=== PATIENT | male | born 1940 | race Two or more races ===

== ENCOUNTER 2024-09-19 21:05 | Inpatient (IN) | payer MEDICARE, MEDICAID, SELFPAY ==
[2024-09-19 21:09] VITALS: BMI 22.8
[2024-09-19 21:10] VITALS: BP 174/74; PULSE 81; RESP 22; TEMP 36.8; O2SAT 92
[2024-09-19 22:13] VITALS: BP 154/80; PULSE 87; RESP 32; TEMP 37.7; O2SAT 93
--- NOTE | 2024-09-19 22:43 | XR_ITS ---
Examination: AP chest single view Technique one AP portable upright chest single view Standing time: September 19, 2024 1053 hours INDICATIONS: Coughing beginning 3 days ago FINDINGS: Normal heart size Extensive bilateral pneumonia Prominent osteopenia IMPRESSION: Extensive bilateral pneumonia
[2024-09-19 23:00] VITALS: BP 116/63; O2SAT 91
--- NOTE | 2024-09-19 23:00 | EDNOTE_ITS ---
ED SOB =RME/HPI General Chief Complaint: Shortness of Breath/Dyspnea Stated Complaint: COUGH Time Seen by Provider: 09/19/24 22:50 Arrival date/time: 09/19/24 21:05 RME / HPI RME / HPI Narrative: Dr. Sullivan?s Main ED Evaluation: 84yo male with a history of DM, HTN, BPH BIBA from [facility] presents to the ED for a chief complaint of hypoxia. Per EMS, patient was sent over due to the patient being hypoxic at 75% on 4L. Patient denies any chest pain, shortness of breath or nausea, but endorses having LUQ pain. He denies any other associated symptoms. No known allergies. Related Data Allergies Allergy/AdvReac Type Severity Reaction Status Date / Time No Known Allergies Allergy Verified 09/19/24 22:43 Review of Systems Review of Systems Systems Reviewed: All systems reviewed, normal except as documented Narrative Review of Systems: Gen: No fever, no chills, no weight loss EYES: No discharge, no visual changes, no pain HEENT: No ear pain, no congestion, no sore throat PULM: No shortness of breath, no cough, no congestion CV: No chest pain, no dyspnea on exertion, no palpitations GI: No nausea, no vomiting, no diarrhea, + pain, no constipation : No frequency, no urgency, no dysuria Musc/skel: No joint pain, no back pain Skin: No rash. Warm and dry. Psyc: No hallucinations, no depression Heme/Lymph: No easy bleeding or bruising tendencies Neuro: No weakness, no headache Past Medical History Past Medical History CARDIAC: Negative Cardiac Disorders or Congestive Heart Failure RESPIRATORY: Negative Respiratory Disorders or Chronic Obstructive Pulmonary Disease (COPD) GASTROINTESTINAL: Negative Gastrointestinal Disorders GENITOURINARY: Negative Renal Disease ENT: Negative History of ENT Problems ENDOCRINE: Positive Diabetes Mellitus Type 2; Negative Endocrine Disorders or Diabetes Mellitus Type 1 HEMATOLOGIC: Negative Blood Disorders ED Exam Narrative Physical exam: GENERAL APPEARANCE: alert and oriented x 4, well-developed, well-nourished, no acute distress VITALS: All vitals were reviewed and the pulse ox is 88% on 4L, which is hypoxic according to my interpretation. HEENT: Normocephalic, atraumatic; pupils equal, round, reactive to light; EOMI; mucous membranes pink, moist; oropharynx clear NECK: Supple LUNGS: no wheezes, rales and rhonchi to bilateral bases HEART: Regular rate, regular rhythm; normal S1, S2; no murmurs ABDOMEN: non distended; normal BS; soft, no tenderness, no guarding, no rebound; no masses, no organomegaly, no hernia BACK: no CVA tenderness EXTREMITIES: atraumatic; no edema NEUROLOGIC: awake; alert and oriented x4; cranial nerves II-XII grossly intact; no focal sensory or motor deficits PSYCHIATRIC: appropriate mood and affect SKIN: warm, dry, normal color; no rashes Course Course Course Narrative: IVF held off due to the patient having pulmonary vascular congestion. 2308: Sepsis alert initiated. Orders made at this time are congruent with ED Adult Sepsis Order List. Re-evaluation is to be completed. Quality Measures Possible source: pulmonary Blood cultures ordered: yes Antibiotic ordered: Yes Pertinent labs: 09/19/24 09/19/24 22:45 22:50 Lactic Acid 1.1 mMol/L (0.4-2.0) Procalcitonin 0.98 H ng/ml (0.0-0.49) sepsis Orders Category Date Time Status Lead Javascript Developer STAT Care 09/19/24 23:01 Active Continuous Pulse Oximetry STAT Care 09/19/24 23:01 Active EKG (ED ONLY) *Do not use* NOW Care 09/19/24 23:01 Completed In and Out Catheter X1PRN Care 09/19/24 23:01 Active Insert IV NOW Care 09/19/24 23:01 Active NPO STAT Care 09/19/24 23:01 Active Strict Intake and Output Routine Care 09/19/24 23:01 Ordered EKG (ED Only) Stat Exams 09/19/24 23:01 Draft XR chest 1V portable Stat Exams 09/19/24 22:43 Completed Arterial Blood Gas Stat Lab 09/19/24 23:23 Completed B-Type Natriuretic Peptide Stat Lab 09/19/24 23:03 Completed Blood Culture (Lab) Stat Lab 09/19/24 23:03 Received CBC Stat Lab 09/19/24 22:50 Completed CMP [Comprehensive Metabolic Panel] Stat Lab 09/19/24 22:50 Completed LDH (Lactate Dehydrogenase) Stat Lab 09/19/24 22:50 Completed Lactate (Lactic Acid) Stat Lab 09/19/24 22:45 Completed Lipase Stat Lab 09/19/24 22:50 Completed Magnesium Stat Lab 09/19/24 22:50 Completed Partial Thromboplastin Time Stat Lab 09/19/24 23:03 Completed Phosphorous Stat Lab 09/19/24 22:50 Completed Procalcitonin Stat Lab 09/19/24 22:50 Completed Prothrombin Time with INR Stat Lab 09/19/24 23:03 Completed Troponin I Stat Lab 09/19/24 22:50 Completed Urinalysis Stat Lab 09/19/24 23:01 Ordered Urine Culture Stat Lab 09/19/24 23:01 Ordered DiphenhydrAMINE INJ [Benadryl Inj] Med 09/20/24 00:09 Discontinued 25 mg IVP X1 ONE Famotidine Inj [Pepcid Inj] Med 09/20/24 00:09 Discontinued 20 mg IVP X1 ONE MethylPREDNISolone.* [SoluMEDROL Inj] Med 09/20/24 00:36 Discontinued 125 mg IVP X1 ONE Piper/Tazo 3.375 gm [Zosyn] Med 09/19/24 23:01 Discontinued 3.375 gm in 50 ml IV X1 Oxygen Delivery NOW RT 09/19/24 23:01 Active Vital Signs Vital signs: Vital Signs Temperature 98.3 F 09/19/24 21:10 Pulse Rate 81 09/19/24 21:10 Respiratory Rate 22 H 09/19/24 21:10 Blood Pressure 174/74 H 09/19/24 21:10 Pulse Oximetry (%) 92 L 09/19/24 21:10 Oxygen Delivery Method Room Air 09/19/24 21:10 Shortness of Breath / Dyspnea MDM Narrative [facility] Narrative:: 0030: Informed by the nurse that the patient had an allergic reaction to Zosyn (had a rash, became short of breath, and was hypoxic). Patient was given Benadryl and Pepcid. Patient data External records reviewed:: [facility] previous records (Per chart review, patient has no previous ED visits or admissions to this facility.) Clinical information provided by:: patient Social determinants that could affect healthcare access:: housing (Pt resides in a SNF.) Patient has the following chronic illnesses:: DM, HTN, BPH How is presenting disease/condition affected by chronic disease/condition?: uneffected by Evaluation data The following diagnostics were reviewed and interpreted by me:: lab results, radiology exam(s) and EKG tracing(s) Lab and/or radiology exams considered but not ordered:: none Interpretation Summary: CBC is normal, PTT is normal, PT and INR are normal, Lactic Acid is normal, troponin is slightly elevated at 0.054, BNP is normal, Procalcitonin is slightly elevated at 0.98, according to my interpretation. CXR shows vascular congestion, [id number] pulmonary edema, and bilateral infiltrates. EKG done at 2329, NSR, rate of 76, left axis deviation, LBBB, no ectopy, no acute ischemia, according to my interpretation. Medications / Prescriptions Medications or Prescriptions considered but not ordered:: none Medication administrations:: Medication Administration History Discontinued Medications Diphenhydramine HCl (Diphenhydramine Inj 50 Mg/Ml Vial) 25 mg IVP X1 ONE Stop: 09/20/24 00:10 Last Admin: 09/20/24 00:25 Dose: 25 mg Documented By: ANSELMO Famotidine (Famotidine Inj 10 Mg/Ml Vial 2 Ml) 20 mg IVP X1 ONE Stop: 09/20/24 00:10 Last Admin: 09/20/24 00:24 Dose: 20 mg Documented By: ANSELMO Piperacillin/Tazobactam/Dextrose (Zosyn) 3.375 gm in 50 mls @ 100 mls/hr IV X1 ONE Stop: 09/19/24 23:30 Last Infusion: 09/20/24 00:23 Dose: Infused Documented By: Admin: 09/19/24 23:35 Dose: 100 mls/hr Documented By: KG Methylprednisolone Sodium Succinate (Methylprednisolone Sod Succ 62.5 Mg/Ml 2ml Vial) 125 mg IVP X1 ONE Stop: 09/20/24 00:37 see above Consultations Consultation(s) initiated? (list below): Yes Consultation #1 (Physician, Specialty, Details): Discussed case with [Dr. Catalan, attending Dr. Higgins] from Hospitalist service regarding admission. Discussed patients ED course, exam findings, labs, and radiology results. The Hospitalist [agrees] to accept the patient for admission. Time: 00:46 Diagnosis Shortness of Breath Differential Diagnosis: other (aspiration pnuemonia, hospital acquired pneumonia, COPD exacerbation, pulmonary edema, empyema) Most likely diagnosis given after review of the tests above:: see below Admission Indicated Admission indicated?: indicated Admission Request Was there a request for admission?: Yes Admission Attestation Admission request attestation: Discussed case with [] from Hospitalist service regarding admission. Discussed patients ED course, exam findings, labs, and radiology results. The Hospitalist [agrees,declines] to accept the patient for admission. Disposition Plan Disposition Plan: Admit Critical Care Time Critical Care Time Critical Care Time: Yes Total Critical Care Time (min.): 40 Attestation: The high probability of sudden, clinically significant deterioration in the patient?s condition required the highest level of my preparedness to intervene urgently. The services I provided to this patient were to treat and/or prevent clinically significant deterioration. Services included the following: chart data review, reviewing nursing notes and/or old charts, documentation time, infrastructure consultant collaboration regarding findings and treatment options, medication orders and management, direct patient care, vital sign assessments and ordering, interpreting and reviewing diagnostic studies and lab tests. Aggregate critical care time includes only time during which I was engaged in work directly related to the patient?s care, as described above, whether at bedside or elsewhere in the Emergency Department. It did not include time spent performing other reported procedures or the services of residents, students, nurses or physician assistants. Discharge Plan Plan Patient Disposition: Admit Acute Care w/in Hospital Problem List Clinical Impression: Multifocal pneumonia, Allergic reaction, Hypoxia, Sepsis, Dehydration, Respiratory failure Patient/Caregiver Discharge Instructions Print Language: Citizen Of [place] Stand Alone Forms: Carin Award Info., Patient Portal Info Letter
--- NOTE | 2024-09-19 23:01 | EKG_ITS ---
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
[2024-09-19 23:09] LABS: Lactate (Lactic Acid) 1.1 mMol/L (0.4-2.0)
[2024-09-19 23:14] LABS: Basophils % (Auto) 0 % (0-2.5); Eosinophils % (Auto) 0 % (0-10); Hematocrit 35.5 % (41.0-53.0); Hemoglobin 11.6 g/dL (13.5-16.0); Immature Granulocytes % (Auto) 2 % (0-0); Immature Granulocytes Auto 0.22 Thou/mm3 (0.00-0.00); Lymphocytes # (Auto) 1.3 Thou/mm3 (1.0-4.8); Lymphocytes % (Auto) 12 % (10-50); Mean Corpuscular HGB Conc 32.7 g/dl (31.0-37.0); Mean Corpuscular Hemoglobin 26.4 pg (25.0-35.0); Mean Corpuscular Volume 81 fL (80-100); Monocytes # (Auto) 0.6 Thou/mm3 (0.0-0.8); Monocytes % (Auto) 6 % (0-12); Neutrophils # (Auto) 8.3 Thou/mm3 (1.8-7.7); Neutrophils % (Auto) 80 % (37-80); Nucleated Red Blood Cell % 0 /100 WBC (0); Platelet Count 317 Thou/mm3 (140-440); RDW Standard Deviation 42.5 fL (35.1-43.9); White Blood Count 10.4 Thou/mm3 (3.8-10.6)
[2024-09-19 23:26] LABS: Base Excess 4 (-3-3); HCO3 27 mEq/L (20-26); Inspired Oxygen, FIO2 21 %; O2 Saturation 91 % (91-98); PCO2 37 mmHg (32.0-48.0); pH, Arterial 7.48 (7.35-7.45)
[2024-09-19 23:28] LABS: Allen Test Performed/OK; Inspired O2, VO2 Liters 6 L/min; Puncture Site Right Radial
[2024-09-19 23:30] LABS: PO2 58 mmHg (83-108)
[2024-09-19 23:32] VITALS: PULSE 96; RESP 20; O2SAT 93
[2024-09-19 23:35] LABS: B-Type Natriuretic Peptide 94 pg/mL (0-100)
[2024-09-19] MEDS: PIPER/TAZO 3.375 GM 3.375 GM/50 ML BAG IV (23:35)
[2024-09-19 23:36] LABS: INR 1.1 (0.9-1.3); Partial Thromboplastin Time 28.2 Seconds (22.0-36.0); Prothrombin Time 11.9 Seconds (9.0-12.2)
[2024-09-19 23:49] LABS: Alanine Aminotransferase 52 U/L (10-49); Albumin, Serum 3.3 gm/dL (3.4-4.8); Alkaline Phosphatase 336 U/L (46-116); Anion Gap 10 (7-16); Aspartate Amino Transferase 57 U/L (0-34); BUN/Creatinine Ratio 27 Ratio (12-20); Bilirubin,Total 0.7 mg/dL (0.3-1.2); Blood Urea Nitrogen 16 mg/dL (9-23); Calcium 8.7 mg/dL (8.3-10.6); Calcium (Corrected) 9.3 mg/dL (8.5-10.1); Carbon Dioxide 28.4 mMol/L (20.0-31.0); Chloride 96 mMol/L (98-107); Creatinine (Component) 0.6 mg/dL (0.6-1.3); Estimated Creatinine Clearance 88.2 mL/min (>60); Globulin 3.2 gm/dL (2.3-3.5); Glucose 111 mg/dL (74-106); LDH (Lactate Dehydrogenase) 420 U/L (120-246); Lipase 42 U/L (12-53); Magnesium 1.8 mg/dL (1.6-2.6); Osmolality,Calculated 270 (275-295); Phosphorous 3.3 mg/dL (2.4-5.1); Potassium 3.5 mMol/L (3.4-5.1); Procalcitonin 0.98 ng/ml (0.0-0.49); Sodium 134 mMol/L (136-145); Total Protein 6.5 gm/dL (5.7-8.2); eGFR > 60 See Note
[2024-09-19 23:51] LABS: Troponin I 0.054 ng/mL (0.0-0.045)
[2024-09-20] VITALS (21 sets, daily range): BP systolic 107–149; BP diastolic 60–99; PULSE 64–99; RESP 17–30; TEMP 36.1–37.7; O2SAT 88–98; BMI 25.8
--- NOTE | 2024-09-20 00:20 | PC.NURSE ---
While receiving Zosyn IV, pt began to o itching . pt had red blotching on much of his body. Med stoped. MD notified and meds ordered and given.
[2024-09-20] MEDS: FAMOTIDINE INJ 10 MG/ML VIAL 2 ML 20 MG IVP (00:24)
[2024-09-20] MEDS: DiphenhydrAMINE INJ 50 MG/ML VIAL 25 MG IVP (00:25)
[2024-09-20] MEDS: MethylPREDNISolone SOD SUCC 62.5 MG/ML 2ML VIAL 125 MG IVP (01:00)
[2024-09-20 01:12] LABS: Collection Type, Urine Clean Catch
[2024-09-20 01:31] LABS: Bacteria,Urine 4+; Bilirubin,Urine Negative (Negative); Blood,Urine Trace (Negative); Clarity,Urine Turbid (Clear/Hazy); Color,Urine Yellow (Lt Yel-Yel); Glucose, Urine Negative (Negative); Hyaline Casts,Urine 1 /hpf (0-1); Ketones,Urine Negative (Negative); Leukocyte Esterase,Urine Positive (Negative); Nitrite,Urine Negative (Negative); Protein,Urine 2+ (Neg - Trace); RBC,Urine 3 /hpf (0-3); Specific Gravity,Urine 1.021 (1.001-1.035); Squamous Epithelial Cell,Urine 3 /hpf (0-5); Urobilinogen,Urine 12 mg/dL (0.0-1.0); WBC,Urine 95 /hpf (0-5)
--- NOTE | 2024-09-20 02:10 | PC.NURSE ---
since meds given for appearant reaction to zosyn, pt no longer itching, no rash and 02 is 93 on 6 L oxy mask. pt also up to BS camode and had medium formed brown BM. pt is resting comfortably now
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
[2024-09-20] MEDS: DOXYCYCLINE INJ 100 MG in SODIUM CHLORIDE 0.9% (P) 100 ML IV ×3 (03:56→20:43)
[2024-09-20] MEDS: SODIUM CHLORIDE RT 10% 15 ML NEBU 5 ML INH (04:07)
[2024-09-20 05:03] LABS: Basophils % (Auto) 0 % (0-2.5); Eosinophils % (Auto) 0 % (0-10); Hematocrit 36.5 % (41.0-53.0); Hemoglobin 11.8 g/dL (13.5-16.0); Immature Granulocytes % (Auto) 2 % (0-0); Immature Granulocytes Auto 0.21 Thou/mm3 (0.00-0.00); Lymphocytes # (Auto) 0.8 Thou/mm3 (1.0-4.8); Lymphocytes % (Auto) 6 % (10-50); Mean Corpuscular HGB Conc 32.3 g/dl (31.0-37.0); Mean Corpuscular Hemoglobin 26.5 pg (25.0-35.0); Mean Corpuscular Volume 82 fL (80-100); Monocytes # (Auto) 0.2 Thou/mm3 (0.0-0.8); Monocytes % (Auto) 2 % (0-12); Neutrophils # (Auto) 12.2 Thou/mm3 (1.8-7.7); Neutrophils % (Auto) 91 % (37-80); Nucleated Red Blood Cell % 0 /100 WBC (0); Platelet Count 281 Thou/mm3 (140-440); RDW Standard Deviation 43.3 fL (35.1-43.9); Red Blood Count 4.45 Miln/mm3 (4.50-5.90); White Blood Count 13.4 Thou/mm3 (3.8-10.6)
[2024-09-20] MEDS: CEFEPIME INJ 2 GM in SODIUM CHLORIDE 0.9% 50 ML IV ×3 (05:12→21:26)
[2024-09-20 05:31] LABS: Alanine Aminotransferase 45 U/L (10-49); Albumin, Serum 3.1 gm/dL (3.4-4.8); Albumin/Globulin Ratio 1.1 (1.2-2.2); Alkaline Phosphatase 302 U/L (46-116); Anion Gap 8 (7-16); Aspartate Amino Transferase 51 U/L (0-34); BUN/Creatinine Ratio 30 Ratio (12-20); Bilirubin,Total 0.7 mg/dL (0.3-1.2); Blood Urea Nitrogen 15 mg/dL (9-23); Calcium 8.4 mg/dL (8.3-10.6); Calcium (Corrected) 9.1 mg/dL (8.5-10.1); Carbon Dioxide 24.7 mMol/L (20.0-31.0); Cardiac Risk Estimate 5.3 RATIO (4.0-6.7); Chloride 100 mMol/L (98-107); Cholesterol 127 mg/dL (132-200); Creatinine (Component) 0.5 mg/dL (0.6-1.3); Estimated Creatinine Clearance 105.8 mL/min (>60); Globulin 2.9 gm/dL (2.3-3.5); Glucose 148 mg/dL (74-106); HDL Cholesterol 24 mg/dL (40-60); LDL Cholesterol,Calculated 73 mg/dL (0-130); Magnesium 1.8 mg/dL (1.6-2.6); Osmolality,Calculated 270 (275-295); Potassium 3.6 mMol/L (3.4-5.1); Sodium 133 mMol/L (136-145); Thyroid Stimulating Hormone 1.29 uIU/mL (0.55-4.78); Triglycerides 149 mg/dL (30-150); Troponin I 0.045 ng/mL (0.0-0.045); eGFR > 60 See Note
[2024-09-20 06:09] LABS: Glucose Estimated Average 140 mg/dL (80-131); Hemoglobin A1C 6.5 % Hgb (4.8-6.0)
[2024-09-20] MEDS: ALBUTEROL/IPRATROPIUM (Duoneb) RT SOL 3 ML NEBU INH ×4 (06:17→22:48)
--- NOTE | 2024-09-20 07:04 | PC.NURSE ---
Report was called to RN and pt was taken to rm [id number] on monitor by me.
[2024-09-20 07:15] LABS: Respiratory Syncytial Virus Ag Negative (Negative)
[2024-09-20] MEDS: Furosemide 20 MG TABLET PO (08:35)
[2024-09-20] MEDS: HEPARIN SOD INJ 5000 UNIT/ML VIAL SC ×2 (08:36→20:49)
[2024-09-20] MEDS: guaiFENesin SYRUP 200 MG/10 ML UDC PO (08:36)
[2024-09-20] MEDS: SENNA TABLET 1 TAB PO (08:36)
[2024-09-20] MEDS: PANTOPRAZOLE INJ 40 MG VIAL IVP (08:37)
--- NOTE | 2024-09-20 09:06 | PC.SS ---
Update: Cultures are pending. Patient receiving IV antibiotics to address UTI.
--- NOTE | 2024-09-20 10:03 | PC.SS ---
MEDICAL TECHNOLOGIST CLINICAL attempted phone call with patient's brother, Drew Schofield; to conduct initial assessment, no response. MEDICAL TECHNOLOGIST CLINICAL left message requesting return call.
[2024-09-20] MEDS: NICOTINE PATCH 7 MG/24 HR PATCH.TD24 TOP (10:46)
[2024-09-20] MEDS: POTASSIUM CHLORIDE 20 mEq TABCR PO (11:55)
[2024-09-20] MEDS: Magnesium Sulfate 2 GM Ivpb 2 GM/50 ML BAG IV (11:59)
[2024-09-20] MEDS: INSULIN LISPRO (AdmeLOG) 1 UNIT/0.01 ML UNIT SC ×3 (12:00→20:49)
[2024-09-20 12:05] LABS: Base Excess, Venous 1 (-3-3); O2 Saturation, Venous 75 % (96-97); PCO2, Venous 47 mmHg (36-56); PO2, Venous 44 mmHg (15-58); pH, Venous 7.36 (7.33-7.66)
[2024-09-20 14:26] LABS: Cocci Serology, IgM Negative (Negative)
--- NOTE | 2024-09-20 17:30 | ESPR_ITS ---
<Statement entered by Britton Cain MD - 09/20/24 18:55> Patient was seen and examined at the bedside. Patient is admitted for acute hypoxic respiratory failure due to healthcare acquired pneumonia. Cxr showed worsening B/L PNA. Patient continued to remain short of breath at rest. Patient was short of breath and desatted to the low 70s. He was placed on nonrebreather mask.We placed order for high flow oxygen as needed.Continuw Cefepime/doxy and BT. A1c was 6.5.Cocci IgM came negative.Patient will be continued on lasix home med for diuresis he was net positive 250 cc. All labs and ordered reviewed. I saw and examined the patient, and I agree with current management stated by Dr Bernardino MD,PGY1. Plan of care was discussed with the attending physician and resident physician. Disclaimer: Despite multiple revisions, due to the dictation software being used, the document bellow may not be free of grammatical errors including phonetic/typographic errors. However, this does not deter from our commitment to providing health care in the patient's best interest in mind. Dr. Payton MD, PGY 2 Documentation for date of: 09/20/24 Subjective Subjective Interval history: Admitted overnight for acute hypoxic respiratory failure secondary to hospital- acquired pneumonia. Continues to be short of breath at rest. Informal rapid called earlier this afternoon as patient desatted to the low 70s. Per RN patient took off his nonrebreather mask. Problem was immediately resolved when the mask was reapplied. Patient was then ordered high flow oxygen for comfort, and so that he could eat. Exam Vital Signs Temp Pulse Resp BP Pulse Ox O2 Del Method O2 Flow Rate 97 F 72 17 149/74 H 92 L High Flow Nasal Cannula 09/20/24 16:09/20/24 16:00 09/20/24 16:00 09/20/24 16:00 09/20/24 16:00 09/20/24 16:09/20/24 16:00 FiO2 60 09/20/24 14:38 Narrative Exam Constitutional: No acute distress Head: Normocephalic/Atraumatic Eyes: no conjunctival injection , symmetrical lids. ENMT: Moist Mucous Membranes CVS: RRR, S1 and S2 present, no murmurs, rubs or gallops . RESP: Rhonchi throughout, mildly tachypneic, patient on 13 L O2 via nonrebreather MSK: No lower extremity edema Skin: Warm to touch, Dry. Neuro: GCS 15, moves all limbs spontaneously Psych: (AAO) x3 . Appropriate mood and affect. Objective Labs 09/21/24 05:03 09/21/24 05:03 Labs: Laboratory Results - last 24 hr 09/19/24 09/19/24 09/19/24 22:45 22:50 23:03 WBC 10.4 RBC 4.40 L Hgb 11.6 L Hct 35.5 L MCV 81 MCH 26.4 MCHC 32.7 RDW Std Deviation 42.5 Plt Count 317 Neut % (Auto) 80 Lymph % (Auto) 12 [place] % (Auto) 6 Eos % (Auto) 0 Baso % (Auto) 0 Neut # (Auto) 8.3 H Lymph # (Auto) 1.3 [place] # (Auto) 0.6 Eos # (Auto) 0.0 Baso # (Auto) 0.0 Immature Gran # (Auto) 0.22 H Absolute Nucleated RBC 0.00 Immature Gran % 2 H Nucleated RBC % 0 PT 11.9 INR 1.1 APTT 28.2 Puncture Site ABG pH ABG pCO2 ABG pO2 ABG HCO3 ABG O2 Saturation ABG Base Excess VBG pH VBG pCO2 VBG pO2 VBG O2 Sat (Saray) VBG Base Excess Oxygen Liter Flow FiO2 Sodium 134 L Potassium 3.5 Chloride 96 L Carbon Dioxide 28.4 Anion Gap 10 BUN 16 Creatinine 0.6 Estim Creat Clear Calc 88.2 eGFR > 60 BUN/Creatinine Ratio 27 H Glucose [address] Glu mg/dL Hemoglobin A1c Calculated Osmolality 270 L Lactic Acid 1.1 Calcium 8.7 Corrected Calcium 9.3 Phosphorus 3.3 Magnesium 1.8 Total Bilirubin 0.7 AST 57 H ALT 52 H Alkaline Phosphatase 336 H Lactate Dehydrogenase 420 H Troponin I 0.054 H* B-Natriuretic Peptide 94 Total Protein 6.5 Albumin 3.3 L Globulin 3.2 Albumin/Globulin Ratio 1.0 L Triglycerides Cholesterol LDL Cholesterol, Calc HDL Cholesterol Cholesterol/HDL Ratio Lipase 42 Procalcitonin 0.98 H TSH Ur Collection Type Urine Color Urine Clarity Urine pH Ur Specific [place] Urine Protein Urine Glucose (UA) Urine Ketones Urine Blood Urine Nitrite Urine Bilirubin Urine Urobilinogen (Auto) Ur Leukocyte Esterase Urine RBC Urine WBC Ur Squamous Epith Cells Urine Bacteria Hyaline Casts Coccidioides IgM Ab RSV Rapid 09/19/24 09/20/24 09/20/24 23:23 01:00 04:39 WBC 13.4 H RBC 4.45 L Hgb 11.8 L Hct 36.5 L MCV 82 MCH 26.5 MCHC 32.3 RDW Std Deviation 43.3 Plt Count 281 D Neut % (Auto) 91 H Lymph % (Auto) 6 L [place] % (Auto) 2 Eos % (Auto) 0 Baso % (Auto) 0 Neut # (Auto) 12.2 H Lymph # (Auto) 0.8 L [place] # (Auto) 0.2 Eos # (Auto) 0.0 Baso # (Auto) 0.0 Immature Gran # (Auto) 0.21 H Absolute Nucleated RBC 0.00 Immature Gran % 2 H Nucleated RBC % 0 PT INR APTT Puncture Site Right Radial ABG pH 7.48 H ABG pCO2 37 ABG pO2 58 L* ABG HCO3 27 H ABG O2 Saturation 91 ABG Base Excess 4 H VBG pH VBG pCO2 VBG pO2 VBG O2 Sat (Saray) VBG Base Excess Oxygen Liter Flow 6 FiO2 21 Sodium 133 L Potassium 3.6 Chloride 100 Carbon Dioxide 24.7 Anion Gap 8 BUN 15 Creatinine 0.5 L Estim Creat Clear Calc 105.8 eGFR > 60 BUN/Creatinine Ratio 30 H Glucose [address] Glu mg/dL 140 H Hemoglobin A1c 6.5 H Calculated Osmolality 270 L Lactic Acid Calcium 8.4 Corrected Calcium 9.1 Phosphorus Magnesium 1.8 Total Bilirubin 0.7 AST 51 H ALT 45 Alkaline Phosphatase 302 H D Lactate Dehydrogenase Troponin I 0.045 B-Natriuretic Peptide Total Protein 6.0 Albumin 3.1 L Globulin 2.9 Albumin/Globulin Ratio 1.1 L Triglycerides 149 Cholesterol 127 L LDL Cholesterol, Calc 73 HDL Cholesterol 24 L Cholesterol/HDL Ratio 5.3 Lipase Procalcitonin TSH 1.29 Ur Collection Type Clean Catch Urine Color Yellow Urine Clarity Turbid A Urine pH 6.0 Ur Specific [place] 1.021 Urine Protein 2+ A Urine Glucose (UA) Negative Urine Ketones Negative Urine Blood Trace Urine Nitrite Negative Urine Bilirubin Negative Urine Urobilinogen (Auto) 12 Ur Leukocyte Esterase Positive Urine RBC 3 Urine WBC 95 H Ur Squamous Epith Cells 3 Urine Bacteria 4+ A Hyaline Casts 1 Coccidioides IgM Ab RSV Rapid 0109/20/24 09/20/24 06:25 08:50 11:36 WBC RBC Hgb Hct MCV MCH MCHC RDW Std Deviation Plt Count Neut % (Auto) Lymph % (Auto) [place] % (Auto) Eos % (Auto) Baso % (Auto) Neut # (Auto) Lymph # (Auto) [place] # (Auto) Eos # (Auto) Baso # (Auto) Immature Gran # (Auto) Absolute Nucleated RBC Immature Gran % Nucleated RBC % PT INR APTT Puncture Site ABG pH ABG pCO2 ABG pO2 ABG HCO3 ABG O2 Saturation ABG Base Excess VBG pH 7.36 VBG pCO2 47 VBG pO2 44 VBG O2 Sat (Saray) 75 L VBG Base Excess 1 Oxygen Liter Flow FiO2 Sodium Potassium Chloride Carbon Dioxide Anion Gap BUN Creatinine Estim Creat Clear Calc eGFR BUN/Creatinine Ratio Glucose Estimated Ave Glu mg/dL Hemoglobin A1c Calculated Osmolality Lactic Acid Calcium Corrected Calcium Phosphorus Magnesium Total Bilirubin AST ALT Alkaline Phosphatase Lactate Dehydrogenase Troponin I B-Natriuretic Peptide Total Protein Albumin Globulin Albumin/Globulin Ratio Triglycerides Cholesterol LDL Cholesterol, Calc HDL Cholesterol Cholesterol/HDL Ratio Lipase Procalcitonin TSH Ur Collection Type Urine Color Urine Clarity Urine pH Ur Specific [place] Urine Protein Urine Glucose (UA) Urine Ketones Urine Blood Urine Nitrite Urine Bilirubin Urine Urobilinogen (Auto) Ur Leukocyte Esterase Urine RBC Urine WBC Ur Squamous Epith Cells Urine Bacteria Hyaline Casts Coccidioides IgM Ab Negative RSV Rapid Negative ABG Interpretation ABG results: 09/19/24 09/20/24 23:23 11:36 ABG pH 7.48 H ABG pCO2 37 ABG pO2 58 L* ABG HCO3 27 H ABG O2 Saturation 91 ABG Base Excess 4 H VBG pH 7.36 VBG pCO2 47 VBG pO2 44 VBG Base Excess 1 Quality Measures Quality Measures sepsis Current suspected stage: ruled out Possible source: pulmonary Blood cultures ordered: yes Antibiotic ordered: Yes Advance care planning discussed with:: patient Assessment & Plan Assessment Current Active Medications: Generic Name Dose Route Start Last Admin Trade Name Freq PRN Reason Stop Dose Admin Acetaminophen 650 mg 09/20/24 13:41 Acetaminophen 325 Mg Tablet PO 10/20/24 02:28 Q6H PRN Fever >100.3 or pain1-3 Hydrocodone Bitart/Acetaminophen 1 tab 09/20/24 02:29 Hydrocodone/Apap 5/325 Tablet PO 09/25/24 02:28 Q4HR PRN PAIN SCALE 4-10(Mod-Sev Albuterol/Ipratropium 3 ml 09/20/24 11:15 09/20/24 14:38 Albuterol/Ipratropium (Duoneb) Rt Amalia 3 Ml Nebu INH 10/20/24 11:14 3 ml Q4HRRT FAM Administration Dextrose 25 ml 09/20/24 11:13 Dextrose 50%-Water Inj 50 Ml Syringe IV 10/20/24 11:12 Q15MIN PRN BG 50-70 responsive npo pt Dextrose 50 ml 09/20/24 11:13 Dextrose 50%-Water Inj 50 Ml Syringe IV 10/20/24 11:12 Q15MIN PRN BG <50 OR BG <70 & pt unresponsive Diphenhydramine HCl 25 mg 09/20/24 02:34 Diphenhydramine Inj 50 Mg/Ml Vial IV 10/20/24 02:33 Q2HR PRN Allergic Reaction Furosemide 20 mg 09/20/24 09:00 09/20/24 08:35 Furosemide 20 Mg Tablet PO 10/20/24 08:59 20 mg QAM FAM Administration Glucagon 1 mg 09/20/24 14:55 Glucagon Inj 1 Mg Vial IM Q15MIN PRN BG <70, and no IV access Guaifenesin 200 mg 09/20/24 09:00 09/20/24 08:36 Guaifenesin Syrup 200 Mg/10 Ml Udc PO 10/20/24 08:59 200 mg DAILY FAM Administration Protocol Heparin Sodium (Porcine) 5,000 unit 09/20/24 21:00 Heparin Sod Inj 5000 Unit/Ml Vial SC 10/04/24 08:59 BID FAM Cefepime HCl 2 gm/ Sodium 50 mls @ 100 mls/hr 09/20/24 14:00 09/20/24 14:18 Chloride IV 09/27/24 13:59 100 mls/hr Q8HR FAM Administration Doxycycline Hyclate 100 mg/ 100 mls @ 100 mls/hr 09/20/24 09:00 09/20/24 08:35 Sodium Chloride IV 09/27/24 08:59 100 mls/hr BID FAM Administration Insulin Human Lispro 0 unit 09/20/24 17:00 09/20/24 17:09 Insulin Lispro (Admelog) 1 Unit/0.01 Ml Unit SC 10/20/24 11:29 1 unit ACHS FAM Administration Protocol Nicotine 7 mg 09/20/24 09:45 09/20/24 10:46 Nicotine Patch 7 Mg/24 Hr Patch.Td24 TOP 10/20/24 09:44 7 mg QDAY FAM Administration Ondansetron HCl 4 mg 09/20/24 02:29 Ondansetron Inj 2 Mg/Ml Inj 2 Ml IV 10/20/24 02:28 Q6H PRN NAUSEA OR VOMITING Protocol Pantoprazole Sodium 40 mg 09/20/24 09:00 09/20/24 08:37 Pantoprazole Inj 40 Mg Vial IVP 10/20/24 08:59 40 mg QDAY FAM Administration Sennosides 1 tab 09/20/24 09:00 09/20/24 08:36 Senna Tablet PO 10/20/24 08:59 1 tab QDAY FAM Administration Protocol Plan Patient is an 84-year-old male with a past medical history significant for essential hypertension, [id number] diabetes mellitus type 2, BPH, nicotine dependence and possible COPD presenting with a chief complaint of shortness of breath. Patient will be admitted for treatment and management of acute respiratory failure with hypoxia secondary to likely hospital-acquired pneumonia. 1. Acute respiratory failure with hypoxia secondary to likely hospital-acquired pneumonia 2. Nicotine dependence 3. Possible COPD Patient presented with hypoxia and shortness of breath at rest. He is a resident at [facility] On exam patient has severe rhonchi throughout DDx: CAP, smoke inhalation, COPD/asthma exacerbation Negative COVID, flu, RSV Chest x-ray significant for bilateral consolidation throughout all lung love, pulmonary edema. ABG pH7.48, PaO2 58, HCO3 27, pCO2 37. PSI/PORT : 104 point. Risk class IV. Hospitalization recommended based on risk Plan: ? Sputum culture and Gram stain pending ? Blood and urine cultures pending ? MRSA nares pending ? DuoNebs Q4 hourly ? Chest physiotherapy every 4 hourly ? Daily nicotine patches ? Guaifenesin syrup 200 Mg p.o. daily ? cefepime 2 g IV every 8 hourly on [09/20? ? doxycycline 100 Mg IV twice daily on [09/20? 4. Essential hypertension ? Resume home Lasix 20 Mg p.o. every morning 5. Evn-labuqvw-[id number] diabetes mellitus type 2 Home medication metformin 500 Mg p.o. twice daily Plan: ? HbA1c ordered ? Low consistent carb diet 6. BPH Health maintenance: Disposition: Nebulizations, IV antibiotics. Diet: Low consistent carb, thickened. Lines: pIVs GI Prophylaxis: Pantoprazole Thrombo Prophylaxis: Heparin 5000 units SC twice daily Code status: FULL CODE Plan of care discussed with Attending Dr. Baer, Rao Lebron DO, PGY1 Attending Provider Attestation/Addendum I have examined the patient, reviewed labs and imaging findings, discussed the case with the resident(s), and reviewed entered orders. I agree with the plan of care as outlined in this note, with these additional summaries/recommendations: Patient appears relatively stable at this time despite being on 15 L oxygen by mask. Rapid response called secondary to hypoxia however patient had removed his mask in order to eat. Will continue patient on broad-spectrum antibiotics and attempt to titrate oxygen as able. Still pending final cocci cultures and may consider addition of high-dose steroids if no improvement in breathing. Demond Baer MD
[2024-09-20] MEDS: ACETAMINOPHEN 325 MG TABLET 650 MG PO (21:26)
[2024-09-21] VITALS (14 sets, daily range): BP systolic 116–158; BP diastolic 56–88; PULSE 56–773; RESP 13–25; TEMP 36–36.4; O2SAT 88–95
--- NOTE | 2024-09-21 01:57 | PC.NURSE ---
Pt is agitated trying to get out of bed, pulling the high flow cannula and yelling. Dr. Zayas was made aware. Waiting for orders.
[2024-09-21] MEDS: ALBUTEROL/IPRATROPIUM (Duoneb) RT SOL 3 ML NEBU INH ×6 (02:34→22:38)
[2024-09-21] MEDS: CEFEPIME INJ 2 GM in SODIUM CHLORIDE 0.9% 50 ML IV ×3 (05:12→23:21)
[2024-09-21 06:04] LABS: Basophils % (Auto) 0 % (0-2.5); Eosinophils % (Auto) 0 % (0-10); Hematocrit 34.9 % (41.0-53.0); Hemoglobin 11.2 g/dL (13.5-16.0); Immature Granulocytes % (Auto) 3 % (0-0); Immature Granulocytes Auto 0.36 Thou/mm3 (0.00-0.00); Lymphocytes # (Auto) 1.5 Thou/mm3 (1.0-4.8); Lymphocytes % (Auto) 12 % (10-50); Mean Corpuscular HGB Conc 32.1 g/dl (31.0-37.0); Mean Corpuscular Hemoglobin 26.3 pg (25.0-35.0); Mean Corpuscular Volume 82 fL (80-100); Monocytes # (Auto) 0.6 Thou/mm3 (0.0-0.8); Monocytes % (Auto) 5 % (0-12); Neutrophils # (Auto) 9.9 Thou/mm3 (1.8-7.7); Neutrophils % (Auto) 80 % (37-80); Nucleated Red Blood Cell % 0 /100 WBC (0); Platelet Count 308 Thou/mm3 (140-440); RDW Standard Deviation 43.8 fL (35.1-43.9); Red Blood Count 4.26 Miln/mm3 (4.50-5.90); White Blood Count 12.4 Thou/mm3 (3.8-10.6)
[2024-09-21 06:39] LABS: Anion Gap 9 (7-16); BUN/Creatinine Ratio 36 Ratio (12-20); Blood Urea Nitrogen 25 mg/dL (9-23); Carbon Dioxide 26.7 mMol/L (20.0-31.0); Chloride 102 mMol/L (98-107); Creatinine (Component) 0.7 mg/dL (0.6-1.3); Glucose 159 mg/dL (74-106); Potassium 3.8 mMol/L (3.4-5.1); Sodium 138 mMol/L (136-145); eGFR > 60 See Note
[2024-09-21 06:40] LABS: Alanine Aminotransferase 38 U/L (10-49); Albumin, Serum 3.1 gm/dL (3.4-4.8); Albumin/Globulin Ratio 1.1 (1.2-2.2); Alkaline Phosphatase 273 U/L (46-116); Aspartate Amino Transferase 33 U/L (0-34); Bilirubin,Total 0.4 mg/dL (0.3-1.2); Calcium 8.8 mg/dL (8.3-10.6); Calcium (Corrected) 9.5 mg/dL (8.5-10.1); Globulin 2.9 gm/dL (2.3-3.5); Magnesium 2.1 mg/dL (1.6-2.6); Osmolality,Calculated 283 (275-295); Phosphorous 3.8 mg/dL (2.4-5.1)
[2024-09-21] MEDS: SENNA TABLET 1 TAB PO (09:20)
[2024-09-21] MEDS: HEPARIN SOD INJ 5000 UNIT/ML VIAL SC ×2 (09:20→20:29)
[2024-09-21] MEDS: guaiFENesin SYRUP 200 MG/10 ML UDC PO (09:20)
[2024-09-21] MEDS: NICOTINE PATCH 7 MG/24 HR PATCH.TD24 TOP (09:20)
[2024-09-21] MEDS: DOXYCYCLINE INJ 100 MG in SODIUM CHLORIDE 0.9% (P) 100 ML IV ×2 (10:00→20:29)
[2024-09-21] MEDS: PANTOPRAZOLE INJ 40 MG VIAL IVP (10:00)
--- NOTE | 2024-09-21 11:38 | PC.NURSE ---
PATIENT IS HARD OF HEARING. HE HAS BEEN REQUESTING TO MAKE A CALL. ASSISTED AND NO ANSWER. HE HAS BEEN YELLING OUT FOR ASSISTANCE WITH PHONE CALL, INFORMED OF NO RESPONSE. HE IS NOT WANTING TO ACCEPT. HE IS VERY SENSITIVE TO TACTILE STIMULUS. OBSERVED WHEN NEW IV STARTED AND OLD IV SITE REMOVED. STARTED TO GET ANGRY BECAUSE HE SAYS NO ONE WILL HELP HIM. PATIENT TOLD HE HAS BEEN HELPED BUT THE CALL IS NOT GOING THROUGH.
--- NOTE | 2024-09-21 12:06 | PC.NURSE ---
JEFRY CALLING OUT TO PATIENT TO STAY IN BED. PATIENT HAD LEGS OUT IN BETWEEN RAILS. TROY INFORMED TO GET BACK INTO BED AND ASSISTED. PATIENT ANGRILY STATED HE NEED THE BOTTLE POINTING FORWARD. PATIENT TOLD HE CAN NOT GET UP OUT OF BED HE WILL END UP FALLING. PATIENT CONTINUED TO COMPLAIN WE REPOSITIONED HIM IN BED. PATIENT INFORMED WE ARE REPOSITIONING YOU SO THAT YOU CAN USE THE URINAL. URINAL GIVEN. ASKED IF HE NEEDED HELP HE JUST FUSSED AND STATED LEAVE ME ALONE. PATIENT WAS GIVEN SOME PRIVACY. AFTER FINISHING, JEFRY TECH CALLED AND STATED HE WAS FINISHED. WENT TO ASSIST HIM THE URINAL HAD POSSIBLY 3CC OF URINE. COVERED P[ATIENT UP.
[2024-09-21] MEDS: Furosemide 20 MG TABLET PO (12:15)
[2024-09-21 14:51] LABS: Cocci Serology, IgG Negative (Negative)
--- NOTE | 2024-09-21 15:06 | PD.RESPRO ---
Documentation for date of: 09/21/24 Subjective Subjective Interval history: Patient remains hypoxic and on high flow at 20 L at 50% FiO2. Continues to desat at rest into the low 70s. Patient denies any shortness of breath or chest pain. Continues to give staff a difficult time by taking off pulse spo2 and attempting to take off high flow. Exam Vital Signs Temp Pulse Resp BP Pulse Ox O2 Del Method O2 Flow Rate 97.1 F 68 20 124/65 91 L High Flow Nasal Cannula 20 09/21/24 12:00 09/21/24 12:15 09/21/24 12:00 09/21/24 12:15 09/21/24 12:00 09/21/24 12:00 09/21/24 12:00 FiO2 50 09/21/24 12:00 Narrative Exam Constitutional: No acute distress Head: Normocephalic/Atraumatic Eyes: no conjunctival injection , symmetrical lids. ENMT: Moist Mucous Membranes CVS: RRR, S1 and S2 present, no murmurs, rubs or gallops . RESP: Rhonchi throughout (improved from yesterday), mildly tachypneic, patient on high flow MSK: No lower extremity edema Skin: Warm to touch, Dry. Neuro: GCS 14, moves all limbs spontaneously Objective Labs 09/24/24 05:06 09/24/24 05:06 Labs: Laboratory Results - last 24 hr 09/20/24 09/21/24 08:50 05:03 WBC 12.4 H RBC 4.26 L Hgb 11.2 L Hct 34.9 L MCV 82 MCH 26.3 MCHC 32.1 RDW Std Deviation 43.8 Plt Count 308 Neut % (Auto) 80 Lymph % (Auto) 12 [place] % (Auto) 5 Eos % (Auto) 0 Baso % (Auto) 0 Neut # (Auto) 9.9 H Lymph # (Auto) 1.5 [place] # (Auto) 0.6 Eos # (Auto) 0.0 Baso # (Auto) 0.0 Immature Gran # (Auto) 0.36 H Absolute Nucleated RBC 0.00 Immature Gran % 3 H Nucleated RBC % 0 Sodium 138 Potassium 3.8 Chloride 102 Carbon Dioxide 26.7 Anion Gap 9 BUN 25 H Creatinine 0.7 Estim Creat Clear Calc 76.0 eGFR > 60 BUN/Creatinine Ratio 36 H Glucose 159 H Calculated Osmolality 283 Calcium 8.8 Corrected Calcium 9.5 Phosphorus 3.8 Magnesium 2.1 Total Bilirubin 0.4 AST 33 ALT 38 Alkaline Phosphatase 273 H D Total Protein 6.0 Albumin 3.1 L Globulin 2.9 Albumin/Globulin Ratio 1.1 L Coccidioides IgG Ab Negative ABG Interpretation ABG results: 09/19/24 09/20/24 23:23 11:36 ABG pH 7.48 H ABG pCO2 37 ABG pO2 58 L* ABG HCO3 27 H ABG O2 Saturation 91 ABG Base Excess 4 H VBG pH 7.36 VBG pCO2 47 VBG pO2 44 VBG Base Excess 1 Quality Measures Quality Measures sepsis Current suspected stage: ruled out Possible source: pulmonary Blood cultures ordered: yes Antibiotic ordered: Yes Advance care planning discussed with:: other Assessment & Plan Assessment Current Active Medications: Generic Name Dose Route Start Last Admin Trade Name Freq PRN Reason Stop Dose Admin Acetaminophen 650 mg 09/20/24 13:41 09/20/24 21:26 Acetaminophen 325 Mg Tablet PO 10/20/24 02:28 650 mg Q6H PRN Administration Fever >100.3 or pain1-3 Hydrocodone Bitart/Acetaminophen 1 tab 09/20/24 02:29 Hydrocodone/Apap 5/325 Tablet PO 09/25/24 02:28 Q4HR PRN PAIN SCALE 4-10(Mod-Sev Albuterol/Ipratropium 3 ml 09/20/24 11:15 09/21/24 10:34 Albuterol/Ipratropium (Duoneb) Rt Amalia 3 Ml Nebu INH 10/20/24 11:14 3 ml Q4HRRT FAM Administration Dextrose 25 ml 09/20/24 11:13 Dextrose 50%-Water Inj 50 Ml Syringe IV 10/20/24 11:12 Q15MIN PRN BG 50-70 responsive npo pt Dextrose 50 ml 09/20/24 11:13 Dextrose 50%-Water Inj 50 Ml Syringe IV 10/20/24 11:12 Q15MIN PRN BG <50 OR BG <70 & pt unresponsive Diphenhydramine HCl 25 mg 09/20/24 02:34 Diphenhydramine Inj 50 Mg/Ml Vial IV 10/20/24 02:33 Q2HR PRN Allergic Reaction Furosemide 20 mg 09/20/24 09:00 09/21/24 12:15 Furosemide 20 Mg Tablet PO 10/20/24 08:59 20 mg QAM FAM Administration Glucagon 1 mg 09/20/24 14:55 Glucagon Inj 1 Mg Vial IM Q15MIN PRN BG <70, and no IV access Guaifenesin 200 mg 09/20/24 09:00 09/21/24 09:20 Guaifenesin Syrup 200 Mg/10 Ml Udc PO 10/20/24 08:59 200 mg DAILY FAM Administration Protocol Heparin Sodium (Porcine) 5,000 unit 09/20/24 21:00 09/21/24 09:20 Heparin Sod Inj 5000 Unit/Ml Vial SC 10/04/24 08:59 5,000 unit BID FAM Administration Cefepime HCl 2 gm/ Sodium 50 mls @ 100 mls/hr 09/20/24 14:00 09/21/24 05:12 Chloride IV 09/27/24 13:59 100 mls/hr Q8HR FAM Administration Doxycycline Hyclate 100 mg/ 100 mls @ 100 mls/hr 09/20/24 09:00 09/21/24 12:28 Sodium Chloride IV 09/27/24 08:59 100 mls/hr BID FAM Administration Insulin Human Lispro 0 unit 09/20/24 17:00 09/21/24 12:17 Insulin Lispro (Admelog) 1 Unit/0.01 Ml Unit SC 10/20/24 11:29 Not Given ACHS FAM Protocol Methylprednisolone Sodium Succinate 40 mg 09/21/24 11:30 09/21/24 12:26 Methylprednisolone Sod Succ 40 Mg Vial IVP 09/28/24 11:29 40 mg QDAY FAM Administration Nicotine 7 mg 09/20/24 09:45 09/21/24 09:20 Nicotine Patch 7 Mg/24 Hr Patch.Td24 TOP 10/20/24 09:44 7 mg QDAY FAM Administration Ondansetron HCl 4 mg 09/20/24 02:29 Ondansetron Inj 2 Mg/Ml Inj 2 Ml IV 10/20/24 02:28 Q6H PRN NAUSEA OR VOMITING Protocol Pantoprazole Sodium 40 mg 09/20/24 09:00 09/21/24 10:00 Pantoprazole Inj 40 Mg Vial IVP 10/20/24 08:59 40 mg QDAY FAM Administration Sennosides 1 tab 09/20/24 09:00 09/21/24 09:20 Senna Tablet PO 10/20/24 08:59 1 tab QDAY FAM Administration Protocol Plan Patient is an 84-year-old male with a past medical history significant for essential hypertension, [id number] diabetes mellitus type 2, BPH, nicotine dependence and possible COPD presenting with a chief complaint of shortness of breath. Patient will be admitted for treatment and management of acute respiratory failure with hypoxia secondary to likely hospital-acquired pneumonia. 1. Acute respiratory failure with hypoxia secondary to likely hospital-acquired pneumonia 2. Nicotine dependence 3. Possible COPD Patient presented with hypoxia and shortness of breath at rest. He is a resident at [facility] On exam patient has rhonchi throughout DDx: CAP, smoke inhalation, COPD/asthma exacerbation Negative COVID, flu, RSV Chest x-ray significant for bilateral consolidation throughout all lung love, pulmonary edema. Negative MRSA nares Plan: ?Blood cultures have no growth after 24 hours, urine culture pending ?Scheduled DuoNebs Q4 hourly ? Chest physiotherapy every 4 hourly ? Daily nicotine patches ? Guaifenesin syrup 200 Mg p.o. daily ? cefepime 2 g IV every 8 hourly on [09/20? ? doxycycline 100 Mg IV twice daily on [09/20? ?Methylprednisolone 40 mg IV QD [09/21-present ?Will consider CT of the chest if clinically not improving 4. Essential hypertension ? Resume home Lasix 20 Mg p.o. every morning 5. Hrq-sladwtr-ddvpgiscn diabetes mellitus type 2 Home medication metformin 500 Mg p.o. twice daily Plan: ? HbA1c ordered ? Low consistent carb diet 6. BPH Health maintenance: Disposition: Nebulizations, IV antibiotics. Diet: Low consistent carb, thickened. Lines: pIVs GI Prophylaxis: Pantoprazole Thrombo Prophylaxis: Heparin 5000 units SC twice daily Code status: FULL CODE Plan of care discussed with Attending Dr. Baer, Rao Lebron DO, PGY1 Attending Provider Attestation/Addendum I have examined the patient, reviewed labs and imaging findings, discussed the case with the resident(s), and reviewed entered orders. I agree with the plan of care as outlined in this note, with these additional summaries/recommendations: Patient seen and examined at bedside. Appears stable and awake and alert, however oxygen requirements. Increasing. He is currently on 20 L of high flow at 50% FiO2. Cocci serology returned negative so initiate patient on Solu-Medrol 40 mg once daily in addition to DuoNebs due to likely COPD exacerbation in the setting of chronic smoking. Will attempt to titrate O2 as able continue to monitor closely. If no improvement, consider CT chest to evaluate further and may need pulmonology consult. Demond Baer MD
--- NOTE | 2024-09-21 15:29 | PC.NURSE ---
PATIENT O2 SAT HAS BEEN DECREASING AND NOW HIGH FLOW SETTING ARE 30L FIO2 OF 60 AND SATING 88%. PATIENT IS NOT C/O SOB AND DOES NOT APPEAR TO HAVE LABORED BREATHING. CALLED DR HARTMAN AND INFORMED OF CHANGES. SUGGESTED ABG TO EVALUATE FOR POSSIBLE CPAP.
[2024-09-21] MEDS: INSULIN LISPRO (AdmeLOG) 1 UNIT/0.01 ML UNIT SC ×2 (17:38→20:35)
[2024-09-22] VITALS (14 sets, daily range): BP systolic 134–148; BP diastolic 64–95; PULSE 7–88; RESP 16–28; TEMP 36.1–36.8; O2SAT 87–100
[2024-09-22] MEDS: ALBUTEROL/IPRATROPIUM (Duoneb) RT SOL 3 ML NEBU INH ×6 (02:29→22:27)
[2024-09-22 05:36] LABS: Basophils % (Auto) 0 % (0-2.5); Eosinophils % (Auto) 0 % (0-10); Hematocrit 35.6 % (41.0-53.0); Hemoglobin 11.4 g/dL (13.5-16.0); Immature Granulocytes % (Auto) 5 % (0-0); Immature Granulocytes Auto 0.61 Thou/mm3 (0.00-0.00); Lymphocytes # (Auto) 1.5 Thou/mm3 (1.0-4.8); Lymphocytes % (Auto) 12 % (10-50); Mean Corpuscular Hemoglobin 26.1 pg (25.0-35.0); Mean Corpuscular Volume 82 fL (80-100); Monocytes # (Auto) 0.5 Thou/mm3 (0.0-0.8); Monocytes % (Auto) 4 % (0-12); Neutrophils # (Auto) 9.3 Thou/mm3 (1.8-7.7); Neutrophils % (Auto) 78 % (37-80); Nucleated Red Blood Cell % 0 /100 WBC (0); Platelet Count 302 Thou/mm3 (140-440); Red Blood Count 4.36 Miln/mm3 (4.50-5.90); White Blood Count 11.9 Thou/mm3 (3.8-10.6)
[2024-09-22] MEDS: CEFEPIME INJ 2 GM in SODIUM CHLORIDE 0.9% 50 ML IV ×3 (05:51→22:39)
[2024-09-22 06:12] LABS: Alanine Aminotransferase 41 U/L (10-49); Albumin/Globulin Ratio 0.9 (1.2-2.2); Alkaline Phosphatase 276 U/L (46-116); Anion Gap 10 (7-16); Aspartate Amino Transferase 42 U/L (0-34); BUN/Creatinine Ratio 38 Ratio (12-20); Bilirubin,Total 0.5 mg/dL (0.3-1.2); Blood Urea Nitrogen 23 mg/dL (9-23); Calcium 8.3 mg/dL (8.3-10.6); Calcium (Corrected) 9.1 mg/dL (8.5-10.1); Carbon Dioxide 27.1 mMol/L (20.0-31.0); Chloride 102 mMol/L (98-107); Creatinine (Component) 0.6 mg/dL (0.6-1.3); Estimated Creatinine Clearance 88.7 mL/min (>60); Globulin 3.2 gm/dL (2.3-3.5); Glucose 98 mg/dL (74-106); Magnesium 1.9 mg/dL (1.6-2.6); Osmolality,Calculated 281 (275-295); Phosphorous 2.7 mg/dL (2.4-5.1); Potassium 3.2 mMol/L (3.4-5.1); Sodium 139 mMol/L (136-145); Total Protein 6.2 gm/dL (5.7-8.2); eGFR > 60 See Note
[2024-09-22] MEDS: POTASSIUM CHLORIDE 20 mEq TABCR 40 MEQ PO (10:41)
[2024-09-22] MEDS: Magnesium Sulfate 2 GM Ivpb 2 GM/50 ML BAG IV (10:41)
[2024-09-22] MEDS: DOXYCYCLINE INJ 100 MG in SODIUM CHLORIDE 0.9% (P) 100 ML IV ×2 (10:41→21:33)
[2024-09-22] MEDS: guaiFENesin SYRUP 200 MG/10 ML UDC PO (10:42)
[2024-09-22] MEDS: Furosemide 20 MG TABLET PO (10:42)
[2024-09-22] MEDS: PANTOPRAZOLE INJ 40 MG VIAL IVP (10:43)
[2024-09-22] MEDS: SENNA TABLET 1 TAB PO (10:43)
[2024-09-22] MEDS: HEPARIN SOD INJ 5000 UNIT/ML VIAL SC ×2 (10:44→21:31)
[2024-09-22] MEDS: NICOTINE PATCH 7 MG/24 HR PATCH.TD24 TOP (10:44)
--- NOTE | 2024-09-22 15:40 | XR_ITS ---
Examination: CT chest, without intravenous contrast. Sagittal and coronal 2-D reconstructions. Exam date and time: September 23, 2024 at 1315 hours INDICATIONS: Hypoxia shortness of breath this week, smoking history CTDI:vol (mGy) 26.41 DLP: (mGycm) 973 Technique: Multiple 3.0 mm axial sections of the chest to been obtained. Bone and lung density settings are obtained. Sagittal and coronal 2-D reconstructions have been obtained. Low dose protocols were performed. One or more of the following dose reduction techniques were used; automated exposure control, adjustment of the mA and/or KV according to patient size, use of iterative reconstruction technique. Findings: No thoracic aortic aneurysmal dilatation Pulmonary artery segments are not enlarged Mild enlargement left atrium left ventricle Extensive bilateral pneumonic consolidation No focal liver or splenic lesions No definite gallstones No hydronephrosis Prominent osteopenia with moderate thoracic spondylosis IMPRESSION: Extensive bilateral pneumonia
--- NOTE | 2024-09-22 17:30 | PD.RESPRO ---
Documentation for date of: 09/22/24 Subjective Subjective Interval history: Patient seen and examined at bedside. No overnight events. Oxygen saturation 97% on high flow nasal cannula, 65 FiO2. Will attempt to wean FiO2. Follow-up on CT chest for further evaluation of underlying possibility of hypoxemia such as fibrosis, clot, pneumonia pattern, effusion. WBC downtrending to 11.9, potassium 3.2 repleted. Denying any shortness of breath, chest pain. Exam Vital Signs Temp Pulse Resp BP Pulse Ox O2 Del Method O2 Flow Rate 97.1 F 82 19 148/67 H 97 High Flow Nasal Cannula 30 09/22/24 16:00 09/22/24 16:00 09/22/24 16:00 09/22/24 16:00 09/22/24 16:00 09/22/24 16:00 09/22/24 14:55 FiO2 65 09/22/24 14:55 Narrative Exam Constitutional: No acute distress Head: Normocephalic/Atraumatic Eyes: no conjunctival injection , symmetrical lids. ENMT: Moist Mucous Membranes CVS: RRR, S1 and S2 present, no murmurs RESP: mild expiratory wheezing, on high flow MSK: No lower extremity edema Skin: Warm to touch, Dry. Neuro: GCS 14, moves all limbs spontaneously Objective Labs 09/22/24 04:40 09/22/24 04:40 Labs: Laboratory Results - last 24 hr 09/22/24 04:40 WBC 11.9 H RBC 4.36 L Hgb 11.4 L Hct 35.6 L MCV 82 MCH 26.1 MCHC 32.0 RDW Std Deviation 44.0 H Plt Count 302 Neut % (Auto) 78 Lymph % (Auto) 12 [place] % (Auto) 4 Eos % (Auto) 0 Baso % (Auto) 0 Neut # (Auto) 9.3 H Lymph # (Auto) 1.5 [place] # (Auto) 0.5 Eos # (Auto) 0.0 Baso # (Auto) 0.0 Immature Gran # (Auto) 0.61 H Absolute Nucleated RBC 0.00 Immature Gran % 5 H Nucleated RBC % 0 Sodium 139 Potassium 3.2 L D Chloride 102 Carbon Dioxide 27.1 Anion Gap 10 BUN 23 Creatinine 0.6 Estim Creat Clear Calc 88.7 eGFR > 60 BUN/Creatinine Ratio 38 H Glucose 98 D Calculated Osmolality 281 Calcium 8.3 Corrected Calcium 9.1 Phosphorus 2.7 Magnesium 1.9 Total Bilirubin 0.5 AST 42 H ALT 41 Alkaline Phosphatase 276 H Total Protein 6.2 Albumin 3.0 L Globulin 3.2 Albumin/Globulin Ratio 0.9 L ABG Interpretation ABG results: 09/19/24 09/20/24 23:23 11:36 ABG pH 7.48 H ABG pCO2 37 ABG pO2 58 L* ABG HCO3 27 H ABG O2 Saturation 91 ABG Base Excess 4 H VBG pH 7.36 VBG pCO2 47 VBG pO2 44 VBG Base Excess 1 Quality Measures Quality Measures sepsis Current suspected stage: ruled out Possible source: pulmonary Blood cultures ordered: yes Antibiotic ordered: Yes Advance care planning discussed with:: patient Assessment & Plan Assessment Current Active Medications: Generic Name Dose Route Start Last Admin Trade Name Freq PRN Reason Stop Dose Admin Acetaminophen 650 mg 09/20/24 13:41 09/20/24 21:26 Acetaminophen 325 Mg Tablet PO 10/20/24 02:28 650 mg Q6H PRN Administration Fever >100.3 or pain1-3 Hydrocodone Bitart/Acetaminophen 1 tab 09/20/24 02:29 Hydrocodone/Apap 5/325 Tablet PO 09/25/24 02:28 Q4HR PRN PAIN SCALE 4-10(Mod-Sev Albuterol/Ipratropium 3 ml 09/20/24 11:15 09/22/24 14:54 Albuterol/Ipratropium (Duoneb) Rt Amalia 3 Ml Nebu INH 10/20/24 11:14 3 ml Q4HRRT FAM Administration Dextrose 25 ml 09/20/24 11:13 Dextrose 50%-Water Inj 50 Ml Syringe IV 10/20/24 11:12 Q15MIN PRN BG 50-70 responsive npo pt Dextrose 50 ml 09/20/24 11:13 Dextrose 50%-Water Inj 50 Ml Syringe IV 10/20/24 11:12 Q15MIN PRN BG <50 OR BG <70 & pt unresponsive Diphenhydramine HCl 25 mg 09/20/24 02:34 Diphenhydramine Inj 50 Mg/Ml Vial IV 10/20/24 02:33 Q2HR PRN Allergic Reaction Furosemide 20 mg 09/20/24 09:00 09/22/24 10:42 Furosemide 20 Mg Tablet PO 10/20/24 08:59 20 mg QAM FAM Administration Glucagon 1 mg 09/20/24 14:55 Glucagon Inj 1 Mg Vial IM Q15MIN PRN BG <70, and no IV access Guaifenesin 200 mg 09/20/24 09:00 09/22/24 10:42 Guaifenesin Syrup 200 Mg/10 Ml Udc PO 10/20/24 08:59 200 mg DAILY FAM Administration Protocol Heparin Sodium (Porcine) 5,000 unit 09/20/24 21:00 09/22/24 10:44 Heparin Sod Inj 5000 Unit/Ml Vial SC 10/04/24 08:59 5,000 unit BID FAM Administration Cefepime HCl 2 gm/ Sodium 50 mls @ 100 mls/hr 09/20/24 14:00 09/22/24 14:10 Chloride IV 09/27/24 13:59 100 mls/hr Q8HR FAM Administration Doxycycline Hyclate 100 mg/ 100 mls @ 100 mls/hr 09/20/24 09:00 09/22/24 10:41 Sodium Chloride IV 09/27/24 08:59 100 mls/hr BID FAM Administration Insulin Human Lispro 0 unit 09/20/24 17:00 09/22/24 11:44 Insulin Lispro (Admelog) 1 Unit/0.01 Ml Unit SC 10/20/24 11:29 Not Given ACHS FAM Protocol Methylprednisolone Sodium Succinate 40 mg 09/21/24 11:30 09/22/24 10:42 Methylprednisolone Sod Succ 40 Mg Vial IVP 09/28/24 11:29 40 mg QDAY FAM Administration Nicotine 7 mg 09/20/24 09:45 09/22/24 10:44 Nicotine Patch 7 Mg/24 Hr Patch.Td24 TOP 10/20/24 09:44 7 mg QDAY FAM Administration Ondansetron HCl 4 mg 09/20/24 02:29 Ondansetron Inj 2 Mg/Ml Inj 2 Ml IV 10/20/24 02:28 Q6H PRN NAUSEA OR VOMITING Protocol Pantoprazole Sodium 40 mg 09/20/24 09:00 09/22/24 10:43 Pantoprazole Inj 40 Mg Vial IVP 10/20/24 08:59 40 mg QDAY FAM Administration Sennosides 1 tab 09/20/24 09:00 09/22/24 10:43 Senna Tablet PO 10/20/24 08:59 1 tab QDAY FAM Administration Protocol Plan Patient is an 84-year-old male with a past medical history significant for essential hypertension, [id number] diabetes mellitus type 2, BPH, nicotine dependence and possible COPD presenting with a chief complaint of shortness of breath. Patient will be admitted for treatment and management of acute respiratory failure with hypoxia secondary to likely hospital-acquired pneumonia. 1. AHRF 2/2 HAP 2. Nicotine dependence 3. Possible COPD exacerbation Patient presented with hypoxia and shortness of breath at rest. He is a resident at [facility] On exam patient has rhonchi throughout DDx: CAP, smoke inhalation, COPD/asthma exacerbation Negative COVID, flu, RSV Chest x-ray significant for bilateral consolidation throughout all lung love, pulmonary edema. Negative MRSA nares Plan: ?Blood cultures have no growth after 24 hours, urine culture pending ?Scheduled DuoNebs Q4 hourly ? Chest physiotherapy every 4 hourly ? Daily nicotine patches ? Guaifenesin syrup 200 Mg p.o. daily ? cefepime 2 g IV every 8 hourly on [09/20? ? doxycycline 100 Mg IV twice daily on [09/20? ?Methylprednisolone 40 mg IV QD [09/21-present ? Follow-up with CT chest 4. Essential hypertension ? home Lasix 20 Mg p.o. daily 5. Uui-mctfweg-egsjkojmc diabetes mellitus type 2 On admission initial glucose 111. Last A1c 6.5 on 09/20/2024. -Held home medications -Bedside blood glucose checks ACHS -Insulin lispro sliding scale -Carb consistent low diet Health maintenance: Disposition: Nebulizations, IV antibiotics for AHRF 2/2 pneumonia Diet: Low consistent carb, thickened. Lines: pIVs GI Prophylaxis: Pantoprazole Thrombo Prophylaxis: Heparin 5000 units SC twice daily Code status: FULL CODE Plan of care discussed with Attending Dr. Baer. Rina King, PGY1 Attending Provider Attestation/Addendum I have examined the patient, reviewed labs and imaging findings, discussed the case with the resident(s), and reviewed entered orders. I agree with the plan of care as outlined in this note, with these additional summaries/recommendations: 84-year-old male with longstanding history of smoking intervention presented to the ED with chief complaint of worsening shortness of breath and hypoxia. Initial chest x-ray showed diffuse bilateral pneumonia pattern and patient hypoxic requiring ~13 L oxy mask with requirements now up to 30 L of high flow nasal cannula 70% FiO2. Initiated on cefepime, Doxycycline for HAP, Solu-Medrol and DuoNebs for COPD exacerbation. Patient has appeared to be resting comfortably and does not appear tachypneic or labored, switched out pulse ox 90 times persistently low. Will obtain CT chest to evaluate further for possible underlying ILD or fibrosis. Demond Baer MD
[2024-09-22] MEDS: INSULIN LISPRO (AdmeLOG) 1 UNIT/0.01 ML UNIT SC ×2 (17:40→21:34)
[2024-09-22] MEDS: traZODone HCL 50 MG TABLET 25 MG PO (21:48)
[2024-09-22] MEDS: LORazepam 2 MG/ML VIAL 1 MG IVP (23:49)
[2024-09-23] VITALS (16 sets, daily range): BP systolic 116–145; BP diastolic 67–93; PULSE 64–88; RESP 13–29; TEMP 36.1–36.6; O2SAT 92–99; BMI 25.7
[2024-09-23] MEDS: ALBUTEROL/IPRATROPIUM (Duoneb) RT SOL 3 ML NEBU INH ×6 (02:02→23:58)
--- NOTE | 2024-09-23 02:44 | PRELIM_ITS ---
CT scan of the chest without intravenous contrast (axial sections with sagittal and coronal reformats); September 23, 2024 at 0115 hours Clinical History: Persistent hypoxia, severe PNA, smoker. Comparison: None. Findings: No pneumothorax. No pleural effusions. Consolidation in the bilateral upper or lower lobes and in the right middle lobe. Dilated left atrium. Coronary arteries calcifications. The mediastinum demonstrates no evidence of mass or lymphadenopathy. The thoracic aorta is unremarkable. There is no pericardial effusion. Degenerative changes of the imaged portions of the spine. No acute fractures. The visualized upper abdominal viscera are unremarkable on this noncontrast study. Impression: Multifocal pneumonia. Dilated left atrium. Report Electronically Signed By: Fabrizio Rowell 09/23/2024 2:43:07 AM [EST]
[2024-09-23] MEDS: CEFEPIME INJ 2 GM in SODIUM CHLORIDE 0.9% 50 ML IV ×3 (05:26→21:39)
[2024-09-23 06:16] LABS: Basophils # (Auto) 0.1 Thou/mm3 (0.0-0.2); Basophils % (Auto) 1 % (0-2.5); Eosinophils % (Auto) 0 % (0-10); Hematocrit 36.9 % (41.0-53.0); Hemoglobin 11.9 g/dL (13.5-16.0); Immature Granulocytes % (Auto) 8 % (0-0); Immature Granulocytes Auto 0.84 Thou/mm3 (0.00-0.00); Lymphocytes # (Auto) 1.8 Thou/mm3 (1.0-4.8); Lymphocytes % (Auto) 16 % (10-50); Mean Corpuscular HGB Conc 32.2 g/dl (31.0-37.0); Mean Corpuscular Hemoglobin 26.3 pg (25.0-35.0); Mean Corpuscular Volume 82 fL (80-100); Monocytes # (Auto) 0.4 Thou/mm3 (0.0-0.8); Monocytes % (Auto) 4 % (0-12); Neutrophils # (Auto) 7.9 Thou/mm3 (1.8-7.7); Neutrophils % (Auto) 72 % (37-80); Nucleated Red Blood Cell % 0 /100 WBC (0); Platelet Count 307 Thou/mm3 (140-440); RDW Standard Deviation 43.8 fL (35.1-43.9); Red Blood Count 4.53 Miln/mm3 (4.50-5.90)
[2024-09-23 06:40] LABS: Alanine Aminotransferase 54 U/L (10-49); Albumin, Serum 3.1 gm/dL (3.4-4.8); Alkaline Phosphatase 320 U/L (46-116); Anion Gap 6 (7-16); Aspartate Amino Transferase 67 U/L (0-34); BUN/Creatinine Ratio 40 Ratio (12-20); Bilirubin,Total 0.6 mg/dL (0.3-1.2); Blood Urea Nitrogen 20 mg/dL (9-23); Calcium 8.5 mg/dL (8.3-10.6); Calcium (Corrected) 9.2 mg/dL (8.5-10.1); Carbon Dioxide 28.6 mMol/L (20.0-31.0); Chloride 105 mMol/L (98-107); Creatinine (Component) 0.5 mg/dL (0.6-1.3); Estimated Creatinine Clearance 106.4 mL/min (>60); Glucose 94 mg/dL (74-106); Magnesium 2.3 mg/dL (1.6-2.6); Osmolality,Calculated 282 (275-295); Phosphorous 2.4 mg/dL (2.4-5.1); Potassium 3.8 mMol/L (3.4-5.1); Sodium 140 mMol/L (136-145); Total Protein 6.1 gm/dL (5.7-8.2); eGFR > 60 See Note
[2024-09-23] MEDS: PANTOPRAZOLE INJ 40 MG VIAL IVP (09:07)
[2024-09-23] MEDS: DOXYCYCLINE INJ 100 MG in SODIUM CHLORIDE 0.9% (P) 100 ML IV ×2 (09:07→20:19)
[2024-09-23] MEDS: Furosemide 20 MG TABLET PO (09:08)
[2024-09-23] MEDS: guaiFENesin SYRUP 200 MG/10 ML UDC PO (09:08)
[2024-09-23] MEDS: NICOTINE PATCH 7 MG/24 HR PATCH.TD24 TOP (09:08)
[2024-09-23] MEDS: SENNA TABLET 1 TAB PO (09:09)
[2024-09-23] MEDS: HEPARIN SOD INJ 5000 UNIT/ML VIAL SC ×2 (09:09→20:23)
--- NOTE | 2024-09-23 11:26 | PC.SS ---
Addendum entered by Pamela Choudhury 09/23/24 11:34: SS contacted [facility] and spoke to Charge nurse, Micheal and he reported patient needs assistance completing ADL's. Patient is not able to ambulate and utilizes a wheelchair to assist with ambulation. Micheal reports that patients brother is the decision maker however they are never able to reach him, Micheal reported that patients friend Tash has lately been the point of contact [phone]. When patient is medically cleared he will return back to [facility]. SS will need to assist with transportation. Discharge plan: [facility] Next of Kin: Friend, Tash [phone] Original Note: SS attempted to contact patient's brother, Drew Schofield however was unsuccessful. SS left Voicemail with contact number.
[2024-09-23] MEDS: INSULIN LISPRO (AdmeLOG) 1 UNIT/0.01 ML UNIT SC ×3 (11:57→20:20)
--- NOTE | 2024-09-23 18:56 | ESPR_ITS ---
<Statement entered by Tatiana Mitchell MD - 09/23/24 19:23> I discussed with and supervised my co-resident involved in the care of this patient. I agree with the assessment and plan as documented above. Patient seen and examined at bedside. Remains on HFNC. Leukocytosis slightly improving. On cefepim and doxy for pneumonia. Will follow up on cultures. Tatiana Mitchell MD PGY-3 Documentation for date of: 09/23/24 Subjective Subjective Interval history: Patient seen and examined at bedside. Overnight, patient was agitated and given trazodone x 1 and Ativan 1 mg x 1. Oxygen saturation 91% on high flow nasal cannula, 30 L 02. Will attempt to wean FiO2. CT chest was negative for PE, fibrosis, hydronephrosis, aneurysmal dilatation. Extensive bilateral pneumonia noted. WBC downtrending to 11.0, potassium 3.8. Continue cefepime 2 g 3 times daily and doxycycline 100 twice daily for treatment of HAP. Sputum culture still pending. Exam Vital Signs Temp Pulse Resp BP Pulse Ox O2 Del Method O2 Flow Rate 97.7 F 88 26 H 139/85 H 97 High Flow Nasal Cannula 30 09/23/24 16:00 09/23/24 18:31 09/23/24 18:31 09/23/24 16:00 09/23/24 18:31 09/23/24 16:00 09/23/24 18:31 FiO2 55 09/23/24 18:31 Narrative Exam Constitutional: No acute distress Head: Normocephalic/Atraumatic Eyes: no conjunctival injection , symmetrical lids. ENMT: Moist Mucous Membranes CVS: RRR, S1 and S2 present, no murmurs RESP: mild expiratory wheezing, on high flow MSK: No lower extremity edema Skin: Warm to touch, Dry. Neuro: GCS 14, moves all limbs spontaneously Objective Labs 09/24/24 05:06 09/24/24 05:06 Labs: Laboratory Results - last 24 hr 09/23/24 05:15 WBC 11.0 H RBC 4.53 Hgb 11.9 L Hct 36.9 L MCV 82 MCH 26.3 MCHC 32.2 RDW Std Deviation 43.8 Plt Count 307 Neut % (Auto) 72 Lymph % (Auto) 16 [place] % (Auto) 4 Eos % (Auto) 0 Baso % (Auto) 1 Neut # (Auto) 7.9 H Lymph # (Auto) 1.8 [place] # (Auto) 0.4 Eos # (Auto) 0.0 Baso # (Auto) 0.1 Immature Gran # (Auto) 0.84 H Absolute Nucleated RBC 0.00 Immature Gran % 8 H Nucleated RBC % 0 Sodium 140 Potassium 3.8 D Chloride 105 Carbon Dioxide 28.6 Anion Gap 6 L BUN 20 Creatinine 0.5 L Estim Creat Clear Calc 106.4 eGFR > 60 BUN/Creatinine Ratio 40 H Glucose 94 Calculated Osmolality 282 Calcium 8.5 Corrected Calcium 9.2 Phosphorus 2.4 Magnesium 2.3 Total Bilirubin 0.6 AST 67 H ALT 54 H Alkaline Phosphatase 320 H D Total Protein 6.1 Albumin 3.1 L Globulin 3.0 Albumin/Globulin Ratio 1.0 L ABG Interpretation ABG results: 09/19/24 09/20/24 23:23 11:36 ABG pH 7.48 H ABG pCO2 37 ABG pO2 58 L* ABG HCO3 27 H ABG O2 Saturation 91 ABG Base Excess 4 H VBG pH 7.36 VBG pCO2 47 VBG pO2 44 VBG Base Excess 1 Quality Measures Quality Measures sepsis Current suspected stage: sepsis Possible source: pulmonary Blood cultures ordered: yes Antibiotic ordered: Yes Advance care planning discussed with:: other Assessment & Plan Assessment Current Active Medications: Generic Name Dose Route Start Last Admin Trade Name Freq PRN Reason Stop Dose Admin Acetaminophen 650 mg 09/20/24 13:41 09/20/24 21:26 Acetaminophen 325 Mg Tablet PO 10/20/24 02:28 650 mg Q6H PRN Administration Fever >100.3 or pain1-3 Hydrocodone Bitart/Acetaminophen 1 tab 09/20/24 02:29 Hydrocodone/Apap 5/325 Tablet PO 09/25/24 02:28 Q4HR PRN PAIN SCALE 4-10(Mod-Sev Albuterol/Ipratropium 3 ml 09/20/24 11:15 09/23/24 18:28 Albuterol/Ipratropium (Duoneb) Rt Amalia 3 Ml Nebu INH 10/20/24 11:14 3 ml Q4HRRT FAM Administration Dextrose 25 ml 09/20/24 11:13 Dextrose 50%-Water Inj 50 Ml Syringe IV 10/20/24 11:12 Q15MIN PRN BG 50-70 responsive npo pt Dextrose 50 ml 09/20/24 11:13 Dextrose 50%-Water Inj 50 Ml Syringe IV 10/20/24 11:12 Q15MIN PRN BG <50 OR BG <70 & pt unresponsive Diphenhydramine HCl 25 mg 09/20/24 02:34 Diphenhydramine Inj 50 Mg/Ml Vial IV 10/20/24 02:33 Q2HR PRN Allergic Reaction Furosemide 20 mg 09/20/24 09:00 09/23/24 09:08 Furosemide 20 Mg Tablet PO 10/20/24 08:59 20 mg QAM FAM Administration Glucagon 1 mg 09/20/24 14:55 Glucagon Inj 1 Mg Vial IM Q15MIN PRN BG <70, and no IV access Guaifenesin 200 mg 09/20/24 09:00 09/23/24 09:08 Guaifenesin Syrup 200 Mg/10 Ml Udc PO 10/20/24 08:59 200 mg DAILY FAM Administration Protocol Heparin Sodium (Porcine) 5,000 unit 09/20/24 21:00 09/23/24 09:09 Heparin Sod Inj 5000 Unit/Ml Vial SC 10/04/24 08:59 5,000 unit BID FAM Administration Doxycycline Hyclate 100 mg/ 100 mls @ 100 mls/hr 09/20/24 09:00 09/23/24 09:07 Sodium Chloride IV 09/27/24 08:59 100 mls/hr BID FAM Administration Cefepime HCl 2 gm/ Sodium 50 mls @ 100 mls/hr 09/23/24 14:00 09/23/24 13:56 Chloride IV 09/27/24 13:59 100 mls/hr Q8HR FAM Administration Insulin Human Lispro 0 unit 09/20/24 17:00 09/23/24 17:42 Insulin Lispro (Admelog) 1 Unit/0.01 Ml Unit SC 10/20/24 11:29 1 unit ACHS FAM Administration Protocol Methylprednisolone Sodium Succinate 40 mg 09/21/24 11:30 09/23/24 09:08 Methylprednisolone Sod Succ 40 Mg Vial IVP 09/28/24 11:29 40 mg QDAY FAM Administration Nicotine 7 mg 09/20/24 09:45 09/23/24 09:08 Nicotine Patch 7 Mg/24 Hr Patch.Td24 TOP 10/20/24 09:44 7 mg QDAY FAM Administration Ondansetron HCl 4 mg 09/20/24 02:29 Ondansetron Inj 2 Mg/Ml Inj 2 Ml IV 10/20/24 02:28 Q6H PRN NAUSEA OR VOMITING Protocol Pantoprazole Sodium 40 mg 09/20/24 09:00 09/23/24 09:07 Pantoprazole Inj 40 Mg Vial IVP 10/20/24 08:59 40 mg QDAY FAM Administration Sennosides 1 tab 09/20/24 09:00 09/23/24 09:09 Senna Tablet PO 10/20/24 08:59 1 tab QDAY FAM Administration Protocol Plan Patient is an 84-year-old male with a past medical history significant for essential hypertension, ngx-vmtsfch-hrenevjet diabetes mellitus type 2, BPH, nicotine dependence and possible COPD presenting with a chief complaint of shortness of breath. Patient will be admitted for treatment and management of acute respiratory failure with hypoxia secondary to likely hospital-acquired pneumonia. #AHRF 2/2 HAP #Nicotine dependence #Possible COPD exacerbation Patient presented with hypoxia and shortness of breath at rest. He is a resident at [facility] On exam patient has rhonchi throughout DDx: CAP, smoke inhalation, COPD/asthma exacerbation Negative COVID, flu, RSV Chest x-ray significant for bilateral consolidation throughout all lung love, pulmonary edema. Negative MRSA nares CT chest 09/22 was negative for PE, fibrosis, hydronephrosis, aneurysmal dilatation. No pathology of fibrosis or interstitial lung disease. Plan: ?Blood cultures have no growth after 24 hours, urine culture pending ?Scheduled DuoNebs Q4 hourly ? Chest physiotherapy every 4 hourly ? Daily nicotine patches ? Guaifenesin syrup 200 Mg p.o. daily ? cefepime 2 g IV every 8 hourly on [09/20? ? doxycycline 100 Mg IV twice daily on [09/20? ?Methylprednisolone 40 mg IV QD [09/21-present #Transaminitis #Elevated alkaline Phosphatase AST 67, ALT 54, ALP 320 CT chest negative for any focal nodular lesions, gallstones. No abdominal tenderness, guarding or rigidity on physical exam. ?Will continue to monitor #Essential hypertension ? home Lasix 20 Mg p.o. daily #Hga-rzwxpja-uapckeaow diabetes mellitus type 2 On admission initial glucose 111. Last A1c 6.5 on 09/20/2024. -Held home medications -Bedside blood glucose checks ACHS -Insulin lispro sliding scale -Carb consistent low diet Health maintenance: Disposition: Nebulizations, IV antibiotics for AHRF 2/2 pneumonia Diet: Low consistent carb, thickened. Lines: pIVs GI Prophylaxis: Pantoprazole Thrombo Prophylaxis: Heparin 5000 units SC twice daily Code status: FULL CODE Plan of care discussed with Attending Dr. Germain and senior Dr. Mitchell. Rina King, PGY1 Attending Provider Attestation/Addendum Face to face evaluation was performed by me. I have personally seen and examined the patient. I discussed the assessment and plan with the entire medicine team. I reviewed available medical records, imaging studies, laboratory results. I agree with the above subjective data, objective findings, assessment and plan except as corrected by me or noted below #AHRF 2/2 below HAP #Extensive bilateral HAP, suspected GPC or GNB #Nicotine dependence #Possible COPD with acute exacerbation - Empiric broad spectrum abxs with cefepime, continue doxy as well, Systemic steroids IV HFNC- wean as able Monitor status closely,
--- NOTE | 2024-09-23 21:15 | PC.NURSE ---
MD Rodarte notified that patient is agitated, yelling at staff, and pulling on his lines. MD Rodarte said he will put orders in
[2024-09-23] MEDS: QUEtiapine FUMARATE 25 MG TABLET PO (21:35)
[2024-09-23] MEDS: ACETAMINOPHEN 325 MG TABLET 650 MG PO (21:58)
[2024-09-24] VITALS (16 sets, daily range): BP systolic 112–139; BP diastolic 66–95; PULSE 64–99; RESP 16–26; TEMP 36.1–36.8; O2SAT 91–100
[2024-09-24] MEDS: ALBUTEROL/IPRATROPIUM (Duoneb) RT SOL 3 ML NEBU INH ×6 (02:44→23:02)
[2024-09-24] MEDS: CEFEPIME INJ 2 GM in SODIUM CHLORIDE 0.9% 50 ML IV ×3 (05:08→21:02)
[2024-09-24 06:21] LABS: Basophils % (Auto) 0 % (0-2.5); Eosinophils % (Auto) 0 % (0-10); Hematocrit 37.6 % (41.0-53.0); Immature Granulocytes % (Auto) 9 % (0-0); Immature Granulocytes Auto 0.89 Thou/mm3 (0.00-0.00); Lymphocytes # (Auto) 1.7 Thou/mm3 (1.0-4.8); Lymphocytes % (Auto) 17 % (10-50); Mean Corpuscular HGB Conc 31.9 g/dl (31.0-37.0); Mean Corpuscular Hemoglobin 26.5 pg (25.0-35.0); Mean Corpuscular Volume 83 fL (80-100); Monocytes # (Auto) 0.4 Thou/mm3 (0.0-0.8); Monocytes % (Auto) 4 % (0-12); Neutrophils # (Auto) 7.4 Thou/mm3 (1.8-7.7); Neutrophils % (Auto) 71 % (37-80); Nucleated Red Blood Cell % 0 /100 WBC (0); Platelet Count 329 Thou/mm3 (140-440); RDW Standard Deviation 45.1 fL (35.1-43.9); Red Blood Count 4.52 Miln/mm3 (4.50-5.90); White Blood Count 10.5 Thou/mm3 (3.8-10.6)
[2024-09-24 06:52] LABS: Alanine Aminotransferase 63 U/L (10-49); Albumin, Serum 3.2 gm/dL (3.4-4.8); Alkaline Phosphatase 334 U/L (46-116); Anion Gap 9 (7-16); Aspartate Amino Transferase 63 U/L (0-34); BUN/Creatinine Ratio 48 Ratio (12-20); Bilirubin,Total 0.5 mg/dL (0.3-1.2); Blood Urea Nitrogen 29 mg/dL (9-23); Calcium 8.7 mg/dL (8.3-10.6); Calcium (Corrected) 9.3 mg/dL (8.5-10.1); Carbon Dioxide 27.5 mMol/L (20.0-31.0); Chloride 104 mMol/L (98-107); Creatinine (Component) 0.6 mg/dL (0.6-1.3); Estimated Creatinine Clearance 88.7 mL/min (>60); Globulin 3.1 gm/dL (2.3-3.5); Glucose 106 mg/dL (74-106); Osmolality,Calculated 285 (275-295); Potassium 3.8 mMol/L (3.4-5.1); Sodium 140 mMol/L (136-145); Total Protein 6.3 gm/dL (5.7-8.2); eGFR > 60 See Note
[2024-09-24] MEDS: Furosemide 20 MG TABLET PO (08:45)
[2024-09-24] MEDS: guaiFENesin SYRUP 200 MG/10 ML UDC PO (08:46)
[2024-09-24] MEDS: DOXYCYCLINE INJ 100 MG in SODIUM CHLORIDE 0.9% (P) 100 ML IV (08:48)
[2024-09-24] MEDS: HEPARIN SOD INJ 5000 UNIT/ML VIAL SC ×2 (08:48→20:07)
[2024-09-24] MEDS: PANTOPRAZOLE INJ 40 MG VIAL IVP (08:49)
[2024-09-24] MEDS: NICOTINE PATCH 7 MG/24 HR PATCH.TD24 TOP (08:49)
[2024-09-24] MEDS: SENNA TABLET 1 TAB PO (08:49)
[2024-09-24] MEDS: HYDROcodone/APAP 5/325 TABLET 1 TAB PO ×3 (10:00→22:31)
[2024-09-24] MEDS: INSULIN LISPRO (AdmeLOG) 1 UNIT/0.01 ML UNIT SC ×3 (11:38→20:18)
--- NOTE | 2024-09-24 12:29 | PC.SS ---
SS follow up note; patient is on High flow.
--- NOTE | 2024-09-24 15:23 | ESPR_ITS ---
<Statement entered by Tatiana Mitchell MD - 09/24/24 16:04> Patient seen and examined at bedside. Remains on HFNC, at 30L at FiO2 of 45%. Lungs still sound congested. Urine culture grew E Coli. Sputum culture to be collected. Will continue cefepime and doxycyline and wean oxygen as tolerated. Tatiana Mitchell MD PGY-3 Documentation for date of: 09/24/24 Subjective Subjective Interval history: Patient seen and examined at bedside. Overnight patient was pulling out IV line and required soft wrist restraints and Seroquel 25 mg x 1. He needs to remain on high flow nasal cannula at 30 L, 45% FiO2, 91% oxygen saturation. Try to wean down with goal of 88-92% O2. Sputum collection is still pending. Continue cefepime 2 g 3 times daily and doxycycline 100 twice daily for 7 days in setting of healthcare associated pneumonia. WBC downtrending today 10.5. Exam Vital Signs Temp Pulse Resp BP Pulse Ox O2 Del Method O2 Flow Rate 98.2 F 79 24 H 112/81 99 Room Air 30 09/24/24 12:00 09/24/24 14:28 09/24/24 14:28 09/24/24 12:00 09/24/24 14:28 09/24/24 12:00 09/24/24 14:28 FiO2 50 09/24/24 14:28 Narrative Exam Constitutional: No acute distress, seems confused but able to speak short sentences Head: Normocephalic/Atraumatic Eyes: no conjunctival injection , symmetrical lids. ENMT: Moist Mucous Membranes CVS: RRR, S1 and S2 present, no murmurs RESP: mild expiratory wheezing, on high flow MSK: No lower extremity edema Skin: Warm to touch, Dry. Neuro: GCS 14, moves all limbs spontaneously Objective Labs 09/24/24 05:06 09/24/24 05:06 Labs: Laboratory Results - last 24 hr 09/24/24 05:06 WBC 10.5 RBC 4.52 Hgb 12.0 L Hct 37.6 L MCV 83 MCH 26.5 MCHC 31.9 RDW Std Deviation 45.1 H Plt Count 329 Neut % (Auto) 71 Lymph % (Auto) 17 [place] % (Auto) 4 Eos % (Auto) 0 Baso % (Auto) 0 Neut # (Auto) 7.4 Lymph # (Auto) 1.7 [place] # (Auto) 0.4 Eos # (Auto) 0.0 Baso # (Auto) 0.0 Immature Gran # (Auto) 0.89 H Absolute Nucleated RBC 0.00 Immature Gran % 9 H Nucleated RBC % 0 Sodium 140 Potassium 3.8 Chloride 104 Carbon Dioxide 27.5 Anion Gap 9 BUN 29 H Creatinine 0.6 Estim Creat Clear Calc 88.7 eGFR > 60 BUN/Creatinine Ratio 48 H Glucose 106 Calculated Osmolality 285 Calcium 8.7 Corrected Calcium 9.3 Total Bilirubin 0.5 AST 63 H ALT 63 H Alkaline Phosphatase 334 H Total Protein 6.3 Albumin 3.2 L Globulin 3.1 Albumin/Globulin Ratio 1.0 L ABG Interpretation ABG results: 09/19/24 09/20/24 23:23 11:36 ABG pH 7.48 H ABG pCO2 37 ABG pO2 58 L* ABG HCO3 27 H ABG O2 Saturation 91 ABG Base Excess 4 H VBG pH 7.36 VBG pCO2 47 VBG pO2 44 VBG Base Excess 1 Quality Measures Quality Measures sepsis Current suspected stage: ruled out Possible source: pulmonary Blood cultures ordered: yes Antibiotic ordered: Yes Advance care planning discussed with:: other Assessment & Plan Assessment Current Active Medications: Generic Name Dose Route Start Last Admin Trade Name Freq PRN Reason Stop Dose Admin Acetaminophen 650 mg 09/20/24 13:41 09/23/24 21:58 Acetaminophen 325 Mg Tablet PO 10/20/24 02:28 650 mg Q6H PRN Administration Fever >100.3 or pain1-3 Hydrocodone Bitart/Acetaminophen 1 tab 09/20/24 02:29 09/24/24 10:00 Hydrocodone/Apap 5/325 Tablet PO 09/25/24 02:28 1 tab Q4HR PRN Administration PAIN SCALE 4-10(Mod-Sev Albuterol/Ipratropium 3 ml 09/20/24 11:15 09/24/24 14:12 Albuterol/Ipratropium (Duoneb) Rt Amalia 3 Ml Nebu INH 10/20/24 11:14 3 ml Q4HRRT FAM Administration Dextrose 25 ml 09/20/24 11:13 Dextrose 50%-Water Inj 50 Ml Syringe IV 10/20/24 11:12 Q15MIN PRN BG 50-70 responsive npo pt Dextrose 50 ml 09/20/24 11:13 Dextrose 50%-Water Inj 50 Ml Syringe IV 10/20/24 11:12 Q15MIN PRN BG <50 OR BG <70 & pt unresponsive Diphenhydramine HCl 25 mg 09/20/24 02:34 Diphenhydramine Inj 50 Mg/Ml Vial IV 10/20/24 02:33 Q2HR PRN Allergic Reaction Doxycycline Hyclate 100 mg 09/24/24 21:00 Doxycycline 100 Mg Tablet PO 10/01/24 20:59 BID FAM Furosemide 20 mg 09/20/24 09:00 09/24/24 08:45 Furosemide 20 Mg Tablet PO 10/20/24 08:59 20 mg QAM FAM Administration Glucagon 1 mg 09/20/24 14:55 Glucagon Inj 1 Mg Vial IM Q15MIN PRN BG <70, and no IV access Guaifenesin 200 mg 09/20/24 09:00 09/24/24 08:46 Guaifenesin Syrup 200 Mg/10 Ml Udc PO 10/20/24 08:59 200 mg DAILY FAM Administration Protocol Heparin Sodium (Porcine) 5,000 unit 09/20/24 21:00 09/24/24 08:48 Heparin Sod Inj 5000 Unit/Ml Vial SC 10/04/24 08:59 5,000 unit BID FAM Administration Cefepime HCl 2 gm/ Sodium 50 mls @ 100 mls/hr 09/23/24 14:00 09/24/24 15:01 Chloride IV 09/27/24 13:59 100 mls/hr Q8HR FAM Administration Insulin Human Lispro 0 unit 09/20/24 17:00 09/24/24 11:38 Insulin Lispro (Admelog) 1 Unit/0.01 Ml Unit SC 10/20/24 11:29 1 unit ACHS FAM Administration Protocol Methylprednisolone Sodium Succinate 40 mg 09/21/24 11:30 09/24/24 08:47 Methylprednisolone Sod Succ 40 Mg Vial IVP 09/28/24 11:29 40 mg QDAY FAM Administration Nicotine 7 mg 09/20/24 09:45 09/24/24 08:49 Nicotine Patch 7 Mg/24 Hr Patch.Td24 TOP 10/20/24 09:44 7 mg QDAY FAM Administration Ondansetron HCl 4 mg 09/20/24 02:29 Ondansetron Inj 2 Mg/Ml Inj 2 Ml IV 10/20/24 02:28 Q6H PRN NAUSEA OR VOMITING Protocol Pantoprazole Sodium 40 mg 09/20/24 09:00 09/24/24 08:49 Pantoprazole Inj 40 Mg Vial IVP 10/20/24 08:59 40 mg QDAY FAM Administration Sennosides 1 tab 09/20/24 09:00 09/24/24 08:49 Senna Tablet PO 10/20/24 08:59 1 tab QDAY FAM Administration Protocol Plan Patient is an 84-year-old male with a past medical history significant for essential hypertension, ijn-wfwqnpo-jarjyiusn diabetes mellitus type 2, BPH, nicotine dependence and possible COPD presenting with a chief complaint of shortness of breath. Patient will be admitted for treatment and management of acute respiratory failure with hypoxia secondary to likely hospital-acquired pneumonia. #AHRF 2/2 HAP #Nicotine dependence #Possible COPD exacerbation Patient presented with hypoxia and shortness of breath at rest. He is a resident at [facility] On exam patient has rhonchi throughout DDx: CAP, smoke inhalation, COPD/asthma exacerbation Negative COVID, flu, RSV Chest x-ray significant for bilateral consolidation throughout all lung love, pulmonary edema. Negative MRSA nares CT chest on 09/22 was negative for PE, fibrosis, hydronephrosis, aneurysmal dilatation. No pathology of fibrosis or interstitial lung disease. Plan: ?Blood cultures have no growth after 24 hours, urine culture pending ?Scheduled DuoNebs Q4 hourly ? Chest physiotherapy every 4 hourly ? Daily nicotine patches ? Guaifenesin syrup 200 Mg p.o. daily ? cefepime 2 g IV every 8 hourly on [09/20? ? doxycycline 100 Mg IV twice daily on [09/20? ?Methylprednisolone 40 mg IV QD [09/21-present #Transaminitis #Elevated alkaline Phosphatase AST 67, ALT 54, ALP 320 CT chest negative for any focal nodular lesions, gallstones. No abdominal tenderness, guarding or rigidity on physical exam. ?Will continue to monitor #Essential hypertension ? home Lasix 20 Mg p.o. daily #Jpq-ojglovj-abgalpuky diabetes mellitus type 2 On admission initial glucose 111. Last A1c 6.5 on 09/20/2024. -Held home medications -Bedside blood glucose checks ACHS -Insulin lispro sliding scale -Carb consistent low diet Health maintenance: Disposition: Nebulizations, IV antibiotics for AHRF 2/2 pneumonia Diet: Low consistent carb, thickened. Lines: pIVs GI Prophylaxis: Pantoprazole Thrombo Prophylaxis: Heparin 5000 units SC twice daily Code status: FULL CODE Plan of care discussed with Attending Dr. Germain and senior Dr. Mitchell. Rina King, PGY1 Attending Provider Attestation/Addendum Face to face evaluation was performed by me. I have personally seen and examined the patient. I discussed the assessment and plan with the entire medicine team. I reviewed available medical records, imaging studies, laboratory results. I agree with the above subjective data, objective findings, assessment and plan except as corrected by me or noted below #AHRF 2/2 below HAP #Extensive bilateral HAP, suspected GPC or GNB #Nicotine dependence #Possible COPD with acute exacerbation - Continue with empiric broad spectrum abxs with cefepime+ po doxy Systemic steroids IV HFNC- decrease FiO2 and )2L, target Saturation > 88% Monitor status closely,
[2024-09-24 16:00] LABS: Band Neutrophils (Manual) 5 % (0-6); Lymphocytes (Manual) 13 % (20-44); Metamyelocytes (Manual) 1 % (0-0); Monocytes (Manual) 7 % (2-9); Myelocytes (Manual) 2 % (0-0); Neutrophils (Manual) 72 % (50-70)
[2024-09-24] MEDS: DOXYCYCLINE 100 MG TABLET PO (20:07)
[2024-09-25] VITALS (11 sets, daily range): BP systolic 108–139; BP diastolic 56–86; PULSE 70–93; RESP 13–25; TEMP 36.3–37.3; O2SAT 84–100
[2024-09-25] MEDS: ALBUTEROL/IPRATROPIUM (Duoneb) RT SOL 3 ML NEBU INH ×2 (02:38→06:55)
[2024-09-25] MEDS: CEFEPIME INJ 2 GM in SODIUM CHLORIDE 0.9% 50 ML IV ×3 (05:04→21:28)
[2024-09-25 06:11] LABS: Basophils # (Auto) 0.1 Thou/mm3 (0.0-0.2); Basophils % (Auto) 0 % (0-2.5); Eosinophils % (Auto) 0 % (0-10); Hematocrit 39.4 % (41.0-53.0); Hemoglobin 12.6 g/dL (13.5-16.0); Immature Granulocytes % (Auto) 7 % (0-0); Lymphocytes # (Auto) 1.9 Thou/mm3 (1.0-4.8); Lymphocytes % (Auto) 12 % (10-50); Mean Corpuscular Hemoglobin 26.5 pg (25.0-35.0); Mean Corpuscular Volume 83 fL (80-100); Monocytes # (Auto) 0.7 Thou/mm3 (0.0-0.8); Monocytes % (Auto) 4 % (0-12); Neutrophils # (Auto) 12.4 Thou/mm3 (1.8-7.7); Neutrophils % (Auto) 76 % (37-80); Nucleated Red Blood Cell % 0 /100 WBC (0); Platelet Count 385 Thou/mm3 (140-440); RDW Standard Deviation 46.3 fL (35.1-43.9); Red Blood Count 4.75 Miln/mm3 (4.50-5.90); White Blood Count 16.2 Thou/mm3 (3.8-10.6)
[2024-09-25 07:07] LABS: Alanine Aminotransferase 59 U/L (10-49); Albumin, Serum 3.3 gm/dL (3.4-4.8); Alkaline Phosphatase 337 U/L (46-116); Anion Gap 8 (7-16); Aspartate Amino Transferase 42 U/L (0-34); BUN/Creatinine Ratio 50 Ratio (12-20); Bilirubin,Total 0.5 mg/dL (0.3-1.2); Blood Urea Nitrogen 30 mg/dL (9-23); Calcium 8.7 mg/dL (8.3-10.6); Calcium (Corrected) 9.3 mg/dL (8.5-10.1); Carbon Dioxide 27.9 mMol/L (20.0-31.0); Chloride 103 mMol/L (98-107); Creatinine (Component) 0.6 mg/dL (0.6-1.3); Estimated Creatinine Clearance 88.7 mL/min (>60); Globulin 3.2 gm/dL (2.3-3.5); Glucose 111 mg/dL (74-106); Osmolality,Calculated 284 (275-295); Sodium 139 mMol/L (136-145); Total Protein 6.5 gm/dL (5.7-8.2); eGFR > 60 See Note
[2024-09-25] MEDS: PANTOPRAZOLE INJ 40 MG VIAL IVP (09:17)
[2024-09-25] MEDS: guaiFENesin SYRUP 200 MG/10 ML UDC PO (09:18)
[2024-09-25] MEDS: NICOTINE PATCH 7 MG/24 HR PATCH.TD24 TOP (09:18)
[2024-09-25] MEDS: DOXYCYCLINE 100 MG TABLET PO ×2 (09:18→20:27)
[2024-09-25] MEDS: SENNA TABLET 1 TAB PO (09:18)
[2024-09-25] MEDS: QUEtiapine FUMARATE 25 MG TABLET 50 MG PO (09:18)
[2024-09-25] MEDS: HEPARIN SOD INJ 5000 UNIT/ML VIAL SC ×2 (09:19→20:30)
[2024-09-25] MEDS: Furosemide 20 MG TABLET PO (09:19)
--- NOTE | 2024-09-25 10:50 | PC.SS ---
Addendum entered by BAMBI Reyes 09/25/24 14:17: Rounding note: patient remains on highflow of O2. Original Note: SS update: sent updated clinicals to Dione Wilder via [email or web address].
[2024-09-25] MEDS: INSULIN LISPRO (AdmeLOG) 1 UNIT/0.01 ML UNIT SC ×3 (13:52→20:27)
--- NOTE | 2024-09-25 14:55 | ESPR_ITS ---
<Statement entered by Tatiana Mitchell MD - 09/25/24 16:08> I discussed with and supervised my co-resident involved in the care of this patient. I agree with the assessment and plan as documented above. Patient seen and examined at bedside. He was agitated overnight and this morning, attempting to get out of bed. He pulls of his Oxymask and saturates at 88%. Labs show increased leukocytosis now to 16. Afebrile. Sputum cultures to be collected. Will continue IV antibiotics cefepime and doxycycline. Tatiana Mitchell MD PGY-3 Documentation for date of: 09/25/24 Subjective Subjective Interval history: Patient seen and examined at bedside. He is no longer on high flow nasal cannula. Today saturating at 88% on 6L nasal cannula. Per nursing patient was agitated and trying to get out of bed, attempting to pull at lines. Was given Seroquel 50 mg x 1. Sounds have improved with decreased wheezing. Continue DuoNebs 6 HR as needed. WBCs trended to 16. Continue cefepime and doxycycline for treatment of pneumonia. Continue to wean down oxygen and monitor WBCs. Anticipate discharge in next 24-48 hours. Exam Vital Signs Temp Pulse Resp BP Pulse Ox O2 Del Method O2 Flow Rate 97.3 F 82 20 108/56 L 100 Nasal Cannula 6 09/25/24 12:00 09/25/24 12:00 09/25/24 12:00 09/25/24 12:00 09/25/24 12:00 09/25/24 12:00 09/25/24 12:00 FiO2 50 09/24/24 19:57 Narrative Exam Constitutional: No acute distress, seems confused but able to speak short sentences Head: Normocephalic/Atraumatic Eyes: no conjunctival injection , symmetrical lids. ENMT: Moist Mucous Membranes CVS: RRR, S1 and S2 present, no murmurs RESP: mild expiratory wheezing, on 6L NC MSK: No lower extremity edema Skin: Warm to touch, Dry. Neuro: GCS 14, moves all limbs spontaneously Objective Labs 09/25/24 05:45 09/25/24 05:45 Labs: Laboratory Results - last 24 hr 09/24/24 09/25/24 05:06 05:45 WBC 16.2 H D RBC 4.75 Hgb 12.6 L Hct 39.4 L MCV 83 MCH 26.5 MCHC 32.0 RDW Std Deviation 46.3 H Plt Count 385 D Neut % (Auto) 76 Lymph % (Auto) 12 [place] % (Auto) 4 Eos % (Auto) 0 Baso % (Auto) 0 Neut # (Auto) 12.4 H Lymph # (Auto) 1.9 [place] # (Auto) 0.7 Eos # (Auto) 0.0 Baso # (Auto) 0.1 Immature Gran # (Auto) 1.20 H Absolute Nucleated RBC 0.00 Immature Gran % 7 H Neutrophils % (Manual) 72 H Monocytes % (Manual) 7 Metamyelocytes % 1 H Myelocytes % 2 H Nucleated RBC % 0 Band Neutrophils 5 Lymphocytes (Manual) 13 L Sodium 139 Potassium 4.0 Chloride 103 Carbon Dioxide 27.9 Anion Gap 8 BUN 30 H Creatinine 0.6 Estim Creat Clear Calc 88.7 eGFR > 60 BUN/Creatinine Ratio 50 H Glucose 111 H Calculated Osmolality 284 Calcium 8.7 Corrected Calcium 9.3 Total Bilirubin 0.5 AST 42 H ALT 59 H Alkaline Phosphatase 337 H Total Protein 6.5 Albumin 3.3 L Globulin 3.2 Albumin/Globulin Ratio 1.0 L ABG Interpretation ABG results: 09/19/24 09/20/24 23:23 11:36 ABG pH 7.48 H ABG pCO2 37 ABG pO2 58 L* ABG HCO3 27 H ABG O2 Saturation 91 ABG Base Excess 4 H VBG pH 7.36 VBG pCO2 47 VBG pO2 44 VBG Base Excess 1 Quality Measures Quality Measures sepsis Current suspected stage: ruled out Possible source: pulmonary Blood cultures ordered: yes Antibiotic ordered: Yes Advance care planning discussed with:: other Assessment & Plan Assessment Current Active Medications: Generic Name Dose Route Start Last Admin Trade Name Freq PRN Reason Stop Dose Admin Acetaminophen 650 mg 09/20/24 13:41 09/23/24 21:58 Acetaminophen 325 Mg Tablet PO 10/20/24 02:28 650 mg Q6H PRN Administration Fever >100.3 or pain1-3 Albuterol/Ipratropium 3 ml 09/25/24 08:25 Albuterol/Ipratropium (Duoneb) Rt Amalia 3 Ml Nebu INH 10/25/24 12:59 Q6HRRT PRN WHEEZING Dextrose 25 ml 09/20/24 11:13 Dextrose 50%-Water Inj 50 Ml Syringe IV 10/20/24 11:12 Q15MIN PRN BG 50-70 responsive npo pt Dextrose 50 ml 09/20/24 11:13 Dextrose 50%-Water Inj 50 Ml Syringe IV 10/20/24 11:12 Q15MIN PRN BG <50 OR BG <70 & pt unresponsive Diphenhydramine HCl 25 mg 09/20/24 02:34 Diphenhydramine Inj 50 Mg/Ml Vial IV 10/20/24 02:33 Q2HR PRN Allergic Reaction Doxycycline Hyclate 100 mg 09/24/24 21:00 09/25/24 09:18 Doxycycline 100 Mg Tablet PO 10/01/24 20:59 100 mg BID FAM Administration Furosemide 20 mg 09/20/24 09:00 09/25/24 09:19 Furosemide 20 Mg Tablet PO 10/20/24 08:59 20 mg QAM FAM Administration Glucagon 1 mg 09/20/24 14:55 Glucagon Inj 1 Mg Vial IM Q15MIN PRN BG <70, and no IV access Guaifenesin 200 mg 09/20/24 09:00 09/25/24 09:18 Guaifenesin Syrup 200 Mg/10 Ml Udc PO 10/20/24 08:59 200 mg DAILY FAM Administration Protocol Heparin Sodium (Porcine) 5,000 unit 09/20/24 21:00 09/25/24 09:19 Heparin Sod Inj 5000 Unit/Ml Vial SC 10/04/24 08:59 5,000 unit BID FAM Administration Cefepime HCl 2 gm/ Sodium 50 mls @ 100 mls/hr 09/23/24 14:00 09/25/24 13:49 Chloride IV 09/27/24 13:59 100 mls/hr Q8HR FAM Administration Insulin Human Lispro 0 unit 09/20/24 17:00 09/25/24 13:52 Insulin Lispro (Admelog) 1 Unit/0.01 Ml Unit SC 10/20/24 11:29 3 unit ACHS FAM Administration Protocol Methylprednisolone Sodium Succinate 40 mg 09/21/24 11:30 09/25/24 09:17 Methylprednisolone Sod Succ 40 Mg Vial IVP 09/28/24 11:29 40 mg QDAY FAM Administration Nicotine 7 mg 09/20/24 09:45 09/25/24 09:18 Nicotine Patch 7 Mg/24 Hr Patch.Td24 TOP 10/20/24 09:44 7 mg QDAY FAM Administration Ondansetron HCl 4 mg 09/20/24 02:29 Ondansetron Inj 2 Mg/Ml Inj 2 Ml IV 10/20/24 02:28 Q6H PRN NAUSEA OR VOMITING Protocol Pantoprazole Sodium 40 mg 09/20/24 09:00 09/25/24 09:17 Pantoprazole Inj 40 Mg Vial IVP 10/20/24 08:59 40 mg QDAY FAM Administration Sennosides 1 tab 09/20/24 09:00 09/25/24 09:18 Senna Tablet PO 10/20/24 08:59 1 tab QDAY FAM Administration Protocol Plan Patient is an 84-year-old male with a past medical history significant for essential hypertension, zzg-sozumdt-ppzulkpel diabetes mellitus type 2, BPH, nicotine dependence and possible COPD presenting with a chief complaint of shortness of breath. Patient will be admitted for treatment and management of acute respiratory failure with hypoxia secondary to likely hospital-acquired pneumonia. #AHRF 2/2 HAP #Nicotine dependence #Possible COPD exacerbation Patient presented with hypoxia and shortness of breath at rest. He is a resident at [facility] On exam patient has rhonchi throughout DDx: CAP, smoke inhalation, COPD/asthma exacerbation Negative COVID, flu, RSV Chest x-ray significant for bilateral consolidation throughout all lung love, pulmonary edema. Negative MRSA nares CT chest on 09/22 was negative for PE, fibrosis, hydronephrosis, aneurysmal dilatation. No pathology of fibrosis or interstitial lung disease. Plan: ?Blood cultures have no growth after 24 hours, urine culture pending ?Scheduled DuoNebs Q6 PRN ? Chest physiotherapy every 4 hourly ? Daily nicotine patches ? Guaifenesin syrup 200 Mg p.o. daily ? cefepime 2 g IV every 8 hourly on [09/20? ? doxycycline 100 Mg IV twice daily on [09/20? ?Methylprednisolone 40 mg IV QD [09/21-present #Transaminitis #Elevated alkaline Phosphatase AST 67, ALT 54, ALP 320 CT chest negative for any focal nodular lesions, gallstones. No abdominal tenderness, guarding or rigidity on physical exam. ?Will continue to monitor #Essential hypertension ? home Lasix 20 Mg p.o. daily #Eyd-hwkczkq-tcqessbyd diabetes mellitus type 2 On admission initial glucose 111. Last A1c 6.5 on 09/20/2024. -Held home medications -Bedside blood glucose checks ACHS -Insulin lispro sliding scale -Carb consistent low diet Health maintenance: Disposition: Nebulizations, IV antibiotics for AHRF 2/2 pneumonia Diet: Low consistent carb, thickened. Lines: pIVs GI Prophylaxis: Pantoprazole Thrombo Prophylaxis: Heparin 5000 units SC twice daily Code status: FULL CODE Plan of care discussed with Attending Dr. Partida and senior Dr. Mitchell. Rina King, PGY1 Attending Provider Attestation/Addendum Rubén, Ilda Partida, DO, attest that I was physically present for the toure portions of the service and evaluated the patient with the resident and I reviewed and discussed the case with the resident and agree with the resident's findings and plans of care as documented above Patient seen and evaluated this AM. Patient is resting comfortably. He remains on 6L/NC. No respiratory distress on exam. Continue with IV abx and titrate O2 as tolerated. Patiet is afebrile. leukocytosis may be 2/2 steroids.
[2024-09-26] VITALS (7 sets, daily range): BP systolic 131–138; BP diastolic 57–75; PULSE 77–87; RESP 17–20; TEMP 36.3–36.7; O2SAT 91–94
[2024-09-26] MEDS: CEFEPIME INJ 2 GM in SODIUM CHLORIDE 0.9% 50 ML IV ×3 (05:01→21:04)
[2024-09-26 05:59] LABS: Basophils % (Auto) 0 % (0-2.5); Eosinophils # (Auto) 0.1 Thou/mm3 (0.0-0.5); Eosinophils % (Auto) 0 % (0-10); Hematocrit 38.7 % (41.0-53.0); Hemoglobin 12.3 g/dL (13.5-16.0); Immature Granulocytes % (Auto) 6 % (0-0); Immature Granulocytes Auto 1.02 Thou/mm3 (0.00-0.00); Lymphocytes # (Auto) 2.3 Thou/mm3 (1.0-4.8); Lymphocytes % (Auto) 13 % (10-50); Mean Corpuscular HGB Conc 31.8 g/dl (31.0-37.0); Mean Corpuscular Hemoglobin 26.8 pg (25.0-35.0); Mean Corpuscular Volume 84 fL (80-100); Monocytes # (Auto) 0.9 Thou/mm3 (0.0-0.8); Monocytes % (Auto) 5 % (0-12); Neutrophils # (Auto) 14.2 Thou/mm3 (1.8-7.7); Neutrophils % (Auto) 76 % (37-80); Nucleated Red Blood Cell % 0 /100 WBC (0); Platelet Count 259 Thou/mm3 (140-440); RDW Standard Deviation 45.9 fL (35.1-43.9); Red Blood Count 4.59 Miln/mm3 (4.50-5.90); White Blood Count 18.6 Thou/mm3 (3.8-10.6)
[2024-09-26 06:32] LABS: Alanine Aminotransferase 52 U/L (10-49); Albumin, Serum 3.3 gm/dL (3.4-4.8); Albumin/Globulin Ratio 1.1 (1.2-2.2); Alkaline Phosphatase 324 U/L (46-116); Anion Gap 11 (7-16); Aspartate Amino Transferase 38 U/L (0-34); BUN/Creatinine Ratio 53 Ratio (12-20); Bilirubin,Total 0.4 mg/dL (0.3-1.2); Blood Urea Nitrogen 32 mg/dL (9-23); Calcium 8.9 mg/dL (8.3-10.6); Calcium (Corrected) 9.5 mg/dL (8.5-10.1); Carbon Dioxide 25.2 mMol/L (20.0-31.0); Chloride 103 mMol/L (98-107); Creatinine (Component) 0.6 mg/dL (0.6-1.3); Estimated Creatinine Clearance 88.7 mL/min (>60); Glucose 118 mg/dL (74-106); Osmolality,Calculated 285 (275-295); Potassium 3.8 mMol/L (3.4-5.1); Sodium 139 mMol/L (136-145); Total Protein 6.3 gm/dL (5.7-8.2); eGFR > 60 See Note
[2024-09-26] MEDS: NICOTINE PATCH 7 MG/24 HR PATCH.TD24 TOP (08:00)
[2024-09-26] MEDS: Furosemide 20 MG TABLET PO (08:01)
[2024-09-26] MEDS: SENNA TABLET 1 TAB PO (08:01)
[2024-09-26] MEDS: guaiFENesin SYRUP 200 MG/10 ML UDC PO (08:04)
[2024-09-26] MEDS: DOXYCYCLINE 100 MG TABLET PO ×2 (08:04→20:02)
[2024-09-26] MEDS: PANTOPRAZOLE INJ 40 MG VIAL IVP (08:04)
[2024-09-26] MEDS: HEPARIN SOD INJ 5000 UNIT/ML VIAL SC ×2 (08:05→20:03)
--- NOTE | 2024-09-26 10:30 | ESPR_ITS ---
<Statement entered by Tatiana Mitchell MD - 09/26/24 14:10> I discussed with and supervised my co-resident involved in the care of this patient. I agree with the assessment and plan as documented above. Clinically, patient looks better. He is on 4L NC, saturating well. He is AAO to name, place, year. Leukocytosis possibly secondary to steroids. Will continue cefepime and doxy, and discontinue the steroids. If WBC improves and patient remains on <5L of O2, anticipate discharge. Tatiana Mitchell MD PGY-3 Documentation for date of: 09/26/24 Subjective Subjective Interval history: Patient seen and examined at bedside. Saturating 93-94% O2 on 4 L nasal cannula. Significant improvement over past 2 days with decreased wheezing on physical exam and decreased oxygen needs. Leukocytosis increasing 18.6 today most likely due to IV steroids. Hold IV steroids continue to titrate O2. Anticipate in discharge 24 hours if WBCs and oxygen requirements improve. Continuing cefepime and doxycycline. Exam Vital Signs Temp Pulse Resp BP Pulse Ox O2 Del Method O2 Flow Rate 97.7 F 82 20 133/66 H 94 L Nasal Cannula 4 09/26/24 08:00 09/26/24 08:01 09/26/24 08:00 09/26/24 08:01 09/26/24 08:00 09/26/24 08:00 09/26/24 08:00 FiO2 50 09/24/24 19:57 Narrative Exam Constitutional: No acute distress, able to answer questions Head: Normocephalic/Atraumatic Eyes: no conjunctival injection , symmetrical lids. ENMT: Moist Mucous Membranes CVS: RRR, S1 and S2 present, no murmurs RESP: no wheezing or crackles, on 4L NC MSK: No lower extremity edema Skin: Warm to touch, Dry. Neuro: moves all limbs spontaneously, alert and oriented to self and year. Objective Labs 09/27/24 05:34 09/27/24 05:34 Labs: Laboratory Results - last 24 hr 09/26/24 05:08 WBC 18.6 H RBC 4.59 Hgb 12.3 L Hct 38.7 L MCV 84 MCH 26.8 MCHC 31.8 RDW Std Deviation 45.9 H Plt Count 259 D Neut % (Auto) 76 Lymph % (Auto) 13 Dickenson % (Auto) 5 Eos % (Auto) 0 Baso % (Auto) 0 Neut # (Auto) 14.2 H Lymph # (Auto) 2.3 Dickenson # (Auto) 0.9 H Eos # (Auto) 0.1 Baso # (Auto) 0.0 Immature Gran # (Auto) 1.02 H Absolute Nucleated RBC 0.00 Immature Gran % 6 H Nucleated RBC % 0 Sodium 139 Potassium 3.8 Chloride 103 Carbon Dioxide 25.2 Anion Gap 11 BUN 32 H Creatinine 0.6 Estim Creat Clear Calc 88.7 eGFR > 60 BUN/Creatinine Ratio 53 H Glucose 118 H Calculated Osmolality 285 Calcium 8.9 Corrected Calcium 9.5 Total Bilirubin 0.4 AST 38 H ALT 52 H Alkaline Phosphatase 324 H Total Protein 6.3 Albumin 3.3 L Globulin 3.0 Albumin/Globulin Ratio 1.1 L ABG Interpretation ABG results: 09/19/24 09/20/24 23:23 11:36 ABG pH 7.48 H ABG pCO2 37 ABG pO2 58 L* ABG HCO3 27 H ABG O2 Saturation 91 ABG Base Excess 4 H VBG pH 7.36 VBG pCO2 47 VBG pO2 44 VBG Base Excess 1 Quality Measures Quality Measures sepsis Current suspected stage: sepsis Possible source: pulmonary Blood cultures ordered: yes Antibiotic ordered: Yes Advance care planning discussed with:: other Assessment & Plan Assessment Current Active Medications: Generic Name Dose Route Start Last Admin Trade Name Freq PRN Reason Stop Dose Admin Acetaminophen 650 mg 09/20/24 13:41 09/23/24 21:58 Acetaminophen 325 Mg Tablet PO 10/20/24 02:28 650 mg Q6H PRN Administration Fever >100.3 or pain1-3 Albuterol/Ipratropium 3 ml 09/25/24 08:25 Albuterol/Ipratropium (Duoneb) Rt Amalia 3 Ml Nebu INH 10/25/24 12:59 Q6HRRT PRN WHEEZING Dextrose 25 ml 09/20/24 11:13 Dextrose 50%-Water Inj 50 Ml Syringe IV 10/20/24 11:12 Q15MIN PRN BG 50-70 responsive npo pt Dextrose 50 ml 09/20/24 11:13 Dextrose 50%-Water Inj 50 Ml Syringe IV 10/20/24 11:12 Q15MIN PRN BG <50 OR BG <70 & pt unresponsive Diphenhydramine HCl 25 mg 09/20/24 02:34 Diphenhydramine Inj 50 Mg/Ml Vial IV 10/20/24 02:33 Q2HR PRN Allergic Reaction Doxycycline Hyclate 100 mg 09/24/24 21:00 09/26/24 08:04 Doxycycline 100 Mg Tablet PO 10/01/24 20:59 100 mg BID FAM Administration Furosemide 20 mg 09/20/24 09:00 09/26/24 08:01 Furosemide 20 Mg Tablet PO 10/20/24 08:59 20 mg QAM FAM Administration Glucagon 1 mg 09/20/24 14:55 Glucagon Inj 1 Mg Vial IM Q15MIN PRN BG <70, and no IV access Guaifenesin 200 mg 09/20/24 09:00 09/26/24 08:04 Guaifenesin Syrup 200 Mg/10 Ml Udc PO 10/20/24 08:59 200 mg DAILY FAM Administration Protocol Heparin Sodium (Porcine) 5,000 unit 09/20/24 21:00 09/26/24 08:05 Heparin Sod Inj 5000 Unit/Ml Vial SC 10/04/24 08:59 5,000 unit BID FAM Administration Cefepime HCl 2 gm/ Sodium 50 mls @ 100 mls/hr 09/23/24 14:00 09/26/24 05:01 Chloride IV 09/27/24 13:59 100 mls/hr Q8HR FAM Administration Insulin Human Lispro 0 unit 09/20/24 17:00 09/26/24 07:42 Insulin Lispro (Admelog) 1 Unit/0.01 Ml Unit SC 10/20/24 11:29 Not Given ACHS FAM Protocol Methylprednisolone Sodium Succinate 40 mg 09/21/24 11:30 09/26/24 08:05 Methylprednisolone Sod Succ 40 Mg Vial IVP 09/28/24 11:29 40 mg QDAY FAM Administration Nicotine 7 mg 09/20/24 09:45 09/26/24 08:00 Nicotine Patch 7 Mg/24 Hr Patch.Td24 TOP 10/20/24 09:44 7 mg QDAY FAM Administration Ondansetron HCl 4 mg 09/20/24 02:29 Ondansetron Inj 2 Mg/Ml Inj 2 Ml IV 10/20/24 02:28 Q6H PRN NAUSEA OR VOMITING Protocol Pantoprazole Sodium 40 mg 09/20/24 09:00 09/26/24 08:04 Pantoprazole Inj 40 Mg Vial IVP 10/20/24 08:59 40 mg QDAY FAM Administration Sennosides 1 tab 09/20/24 09:00 09/26/24 08:01 Senna Tablet PO 10/20/24 08:59 1 tab QDAY FAM Administration Protocol Plan Patient is an 84-year-old male with a past medical history significant for essential hypertension, mtr-munjdxa-anqiuhigc diabetes mellitus type 2, BPH, nicotine dependence and possible COPD presenting with a chief complaint of shortness of breath. Patient will be admitted for treatment and management of acute respiratory failure with hypoxia secondary to likely hospital-acquired pneumonia. #AHRF 2/2 HAP #Nicotine dependence #Possible COPD exacerbation Patient presented with hypoxia and shortness of breath at rest. He is a resident at [facility] On exam patient has rhonchi throughout DDx: CAP, smoke inhalation, COPD/asthma exacerbation Negative COVID, flu, RSV Chest x-ray significant for bilateral consolidation throughout all lung love, pulmonary edema. Negative MRSA nares CT chest on 09/22 was negative for PE, fibrosis, hydronephrosis, aneurysmal dilatation. No pathology of fibrosis or interstitial lung disease. Plan: ?stop Methylprednisolone 40 mg IV QD [09/21-09/26) ?Blood cultures have no growth after 24 hours, urine culture pending ?Scheduled DuoNebs Q6 PRN ? Chest physiotherapy every 4 hourly ? Daily nicotine patches ? Guaifenesin syrup 200 Mg p.o. daily ? cefepime 2 g IV every 8 hourly on [09/20? ? doxycycline 100 Mg IV twice daily on [09/20? -titrate oxygen #Transaminitis-improving #Elevated alkaline Phosphatase CT chest negative for any focal nodular lesions, gallstones. No abdominal tenderness, guarding or rigidity on physical exam. ?Will continue to monitor #Essential hypertension ? home Lasix 20 Mg p.o. daily #Lix-ddtnkae-sclpyxcnx diabetes mellitus type 2 On admission initial glucose 111. Last A1c 6.5 on 09/20/2024. -Held home medications -Bedside blood glucose checks ACHS -Insulin lispro sliding scale -Carb consistent low diet Health maintenance: Disposition: Nebulizations, IV antibiotics for AHRF 2/2 pneumonia Diet: Low consistent carb, thickened. Lines: pIVs GI Prophylaxis: Pantoprazole Thrombo Prophylaxis: Heparin 5000 units SC twice daily Code status: FULL CODE Plan of care discussed with Attending Dr. Partida and senior Dr. Mitchell. Rina King, PGY1 Attending Provider Attestation/Addendum Ilda [place], , attest that I was physically present for the toure portions of the service and evaluated the patient with the resident and I reviewed and discussed the case with the resident and agree with the resident's findings and plans of care as documented above Patient seen and evaluated this AM. No acute events overnight. Patient is calm and states that he is feeling better. He has no acute complaints at this time. patient was on 4L/Nc at time of evaluation, decreased to 2L. If patient remains on 2L/NC in Am, anticipate DC to SNF within 24hrs. Leukocytosis likely 2/2 steroids as patient has no fever or systemic symptoms of infection. Will DC steroids at this time as patient is improved
[2024-09-26] MEDS: INSULIN LISPRO (AdmeLOG) 1 UNIT/0.01 ML UNIT SC ×3 (11:22→20:02)
[2024-09-27] VITALS: BP 107/65; PULSE 70; PULSE 73; RESP 18; TEMP 36.5; O2SAT 92
[2024-09-27 04:00] VITALS: BP 124/69; PULSE 69; PULSE 78; RESP 20; TEMP 36.6; O2SAT 96
[2024-09-27] MEDS: CEFEPIME INJ 2 GM in SODIUM CHLORIDE 0.9% (P) 50 ML IV (05:06)
[2024-09-27 05:49] LABS: Basophils % (Auto) 0 % (0-2.5); Eosinophils # (Auto) 0.1 Thou/mm3 (0.0-0.5); Eosinophils % (Auto) 0 % (0-10); Hematocrit 36.7 % (41.0-53.0); Hemoglobin 11.6 g/dL (13.5-16.0); Immature Granulocytes % (Auto) 6 % (0-0); Immature Granulocytes Auto 0.87 Thou/mm3 (0.00-0.00); Lymphocytes # (Auto) 1.8 Thou/mm3 (1.0-4.8); Lymphocytes % (Auto) 13 % (10-50); Mean Corpuscular HGB Conc 31.6 g/dl (31.0-37.0); Mean Corpuscular Hemoglobin 26.5 pg (25.0-35.0); Mean Corpuscular Volume 84 fL (80-100); Monocytes # (Auto) 0.9 Thou/mm3 (0.0-0.8); Monocytes % (Auto) 7 % (0-12); Neutrophils # (Auto) 10.1 Thou/mm3 (1.8-7.7); Neutrophils % (Auto) 73 % (37-80); Nucleated Red Blood Cell % 0 /100 WBC (0); Platelet Count 407 Thou/mm3 (140-440); RDW Standard Deviation 45.6 fL (35.1-43.9); Red Blood Count 4.37 Miln/mm3 (4.50-5.90); White Blood Count 13.8 Thou/mm3 (3.8-10.6)
[2024-09-27 06:56] LABS: Alanine Aminotransferase 53 U/L (10-49); Albumin, Serum 3.2 gm/dL (3.4-4.8); Albumin/Globulin Ratio 1.1 (1.2-2.2); Alkaline Phosphatase 323 U/L (46-116); Anion Gap 6 (7-16); Aspartate Amino Transferase 41 U/L (0-34); BUN/Creatinine Ratio 43 Ratio (12-20); Bilirubin,Total 0.5 mg/dL (0.3-1.2); Blood Urea Nitrogen 30 mg/dL (9-23); Calcium 8.8 mg/dL (8.3-10.6); Calcium (Corrected) 9.4 mg/dL (8.5-10.1); Carbon Dioxide 26.8 mMol/L (20.0-31.0); Chloride 103 mMol/L (98-107); Creatinine (Component) 0.7 mg/dL (0.6-1.3); Globulin 2.9 gm/dL (2.3-3.5); Glucose 110 mg/dL (74-106); Osmolality,Calculated 279 (275-295); Potassium 3.9 mMol/L (3.4-5.1); Sodium 136 mMol/L (136-145); Total Protein 6.1 gm/dL (5.7-8.2); eGFR > 60 See Note
[2024-09-27 08:00] VITALS: BP 118/67; PULSE 68; PULSE 78; RESP 15; TEMP 36.3; O2SAT 95
[2024-09-27 08:41] VITALS: BP 118/67; PULSE 78
[2024-09-27] MEDS: guaiFENesin SYRUP 200 MG/10 ML UDC PO (08:41)
[2024-09-27] MEDS: DOXYCYCLINE 100 MG TABLET PO (08:41)
[2024-09-27] MEDS: HEPARIN SOD INJ 5000 UNIT/ML VIAL SC (08:41)
[2024-09-27] MEDS: Furosemide 20 MG TABLET PO (08:41)
[2024-09-27] MEDS: NICOTINE PATCH 7 MG/24 HR PATCH.TD24 TOP (08:42)
--- NOTE | 2024-09-27 09:15 | PC.SS ---
Addendum entered by Pamela Choudhury 09/27/24 10:06: SS attempted to contact patient's brother, Drew, however did not answer, SS left Voicemail with contact Number. SS attempted to contact patient's friend, Tash however as well did not answer. SS informed patient he was going back [facility]. SS contacted Eliane from [facility]. Original Note: SS contacted [facility] transportation. SS set up transportation. [place] [facility] was contacted by [facility]. SS will contact [facility] to set up transportation. SS will inform patient's family as well as patient's nurse.
[2024-09-27] MEDS: PANTOPRAZOLE 40 MG TABLET PO (09:36)
[2024-09-27] MEDS: SENNA TABLET 1 TAB PO (09:36)
[2024-09-27 12:00] VITALS: BP 109/62; PULSE 69; TEMP 36.6; O2SAT 92
--- NOTE | 2024-09-27 20:07 | ESDS_ITS ---
<Statement entered by Ilda Partida DO - 09/28/24 14:31> I, Ilda Partida DO, attest that I was physically present for the toure portions of the service and evaluated the patient with the resident and I reviewed and discussed the case with the resident and agree with the resident's findings and plans of care as documented above Planned Discharge Date 09/27/24 DS: Providers Provider Date of admission: 09/20/24 02:24 Primary care physician: Opal Menezes MD Admitting Provider: Juan Higgins MD Attending Provider on Admission: Ilda Partida DO Discharging Provider: Ilda Partida DO DS: Diagnosis Problem List Completed Was Problem List Reviewed/Reconciled?: Yes Hospital Course Hospital Course Hospital course: Reason for hospitalization:AHRF 2/2 HAP Se Schofield is 84 yr male with PMH of HTN, dzh-udnsqug-uvafzpkuw diabetes mellitus type 2, BPH, nicotine dependence and possible COPD who presented to ED on 09/20/24 from [facility] due to SOB. Per nursing, patient was hypoxic in the 60s on 4L NC. Chest xray showed bilateral consolidation. He was started on oxy mask and admitted for acute hypoxic respiratory failure secondary to healthcare associated pneumonia. Patient's oxygen requirement increased over the next few days needing 30L high flow nasal cannula on 70%FiO2. Repeat imaging on CT chest was negative for PE or fibrosis. COVID, flu, and RSV tests were negative. Sputum culture was non-obtainable. Patient was treated with duonebs daily, 40 mg IV methylprednisolone x5 days, cefepime 2 g IV TID x6 days, and doxycyline 100 mg IV BID x6 days. Patient was also treated with seroquel 25 mg PRN throughout hospitalization due to agitaiton/pulling lines. Oxygen requirements improved with levels titrated down to 2L NC. Patient was alert and oriented x3. Patient is now in stable condition and ready for discharge. Recommendations were given as below. Discharge Recommendations: Complete doxycycline 100 mg BID for 3 more days. Continue furosemide 20 mg daily. Continue metformin 500 mg daily. Follow up with PCP in 1 week. Return if any symptoms worsen such as shortness of breath or fever. Hospital Diagnoses: #AHRF 2/2 HAP #Nicotine dependence #Possible COPD exacerbation #Transaminitis-improving #Elevated alkaline Phosphatase #Essential hypertension #Bey-pbqccde-lsxjowusz diabetes mellitus type 2 The patient's management plan was discussed with my attending physician Dr. Partida and senior Dr. Mitchell. Rina King MD, PGY-1 Status at Discharge Overall status at discharge: patient is back to baseline Time Spent with Patient Time attestation: Total time spent providing and/or coordinating discharge services: Time spent: Greater than 30 minutes Exam Vital Signs Temp Pulse Resp BP Pulse Ox O2 Del Method O2 Flow Rate 97.8 F 69 15 109/62 92 L Nasal Cannula 2 09/27/24 12:00 09/27/24 12:00 09/27/24 08:00 09/27/24 12:00 09/27/24 12:00 09/27/24 12:00 09/27/24 12:00 FiO2 50 09/27/24 08:00 Narrative Exam Constitutional: No acute distress, able to answer questions Head: Normocephalic/Atraumatic Eyes: no conjunctival injection , symmetrical lids. ENMT: Moist Mucous Membranes CVS: RRR, S1 and S2 present, no murmurs RESP: no wheezing or crackles, on 4L NC MSK: No lower extremity edema Skin: Warm to touch, Dry. Neuro: moves all limbs spontaneously, alert and oriented to self and year. Discharge Plan Plan Patient Disposition: Xfer Skilled Nsg Fac (SNF) Patient condition on transfer: Stable Prescriptions/Referrals Prescriptions/Med Rec: New doxycycline hyclate 100 mg Tablet 100 mg PO BID 3 Days Qty: 6 0RF metformin 500 mg tablet 500 mg PO QDAY Qty: 30 0RF furosemide [Lasix] 20 mg tablet 20 mg PO QDAY Qty: 30 0RF Referrals: Opal Menezes MD [Primary Care Provider] - Patient/Caregiver Discharge Instructions Other Discharge Activity Instructions:: Complete doxycycline 100 mg BID for 3 more days. Continue furosemide 20 mg daily. Continue metformin 500 mg daily. Follow up with PCP in 1 week. Return if any symptoms worsen such as shortness of breath or fever. Education Materials: Preventing Common Respiratory ... Print Language: Swazi Stand Alone Forms: Carin Award Info., Patient Portal Info Letter Discharge Order Discharge Orders: Discharge (Routine); Ordered 09/27/24 Ordered By: Tatiana Mitchell Quality Discharge Quality Measures VTE prophylaxis
== END 2024-09-27 12:03 | disposition skilled nursing facility (03) | DRG 193 ==
LOC: SERX 09-20 02:08 → SERHOLD 09-20 03:01 → S3SX 09-20 06:54 → S3NX 09-22 15:12
PROVIDERS: Student in an Organized Health Care Education/Training Program; Admitting Provider Internal Medicine; Emergency Provider Emergency Medicine; PCP Hospitalist; Visit Provider Internal Medicine
DX: J18.9 Pneumonia, unspecified organism (principal); J96.01 Acute respiratory failure with hypoxia; J44.0 Chronic obstructive pulmonary disease with (acute) lower respiratory infection; J44.1 Chronic obstructive pulmonary disease with (acute) exacerbation; N40.0 Benign prostatic hyperplasia without lower urinary tract symptoms; I10 Essential (primary) hypertension; E11.9 Type 2 diabetes mellitus without complications; Y95 Nosocomial condition; R74.8 Abnormal levels of other serum enzymes; R74.01 Elevation of levels of liver transaminase levels; R45.1 Restlessness and agitation; F17.200 Nicotine dependence, unspecified, uncomplicated; B96.20 Unspecified Escherichia coli [E. coli] as the cause of diseases classified elsewhere; Z79.84 Long term (current) use of oral hypoglycemic drugs; Z79.899 Other long term (current) drug therapy; Z88.0 Allergy status to penicillin; Z88.8 Allergy status to other drugs, medicaments and biological substances; Z11.52 Encounter for screening for COVID-19; Z78.1 Physical restraint status; T38.0X5A Adverse effect of glucocorticoids and synthetic analogues, initial encounter; T36.0X5A Adverse effect of penicillins, initial encounter
CPT/HCPCS: 36415; 36600; 71045; 71250; 80053; 80061; 81001; 82803; 83036; 83605; 83615; 83690; 83735; 83880; 84100; 84145; 84443; 84484; 85025; 85610; 85730; 86331; 86635; 87040; 87077; 87081; 87086; 87186; 87400; 87502; 87634; 87811; 89220; 93005; 93225; 94640; 94667; 94762; 96365; 96375; 99291; A9270; J0692; J1200; J1643; J1815; J2060; J2470; J2543; J2919; J3475; J3490; J7050